=== PATIENT | female | born 1950 | race Caucasian/White ===

== ENCOUNTER → 2019-11-08 08:18 | Outpatient (BNVA) | payer MEDICARE, MEDICAID, SELFPAY | PROVIDERS: Family Provider Family Medicine; PCP Family Medicine; Visit Provider Nurse Practitioner | DX: F90.2 Attention-deficit hyperactivity disorder, combined type (principal); F43.12 Post-traumatic stress disorder, chronic | CPT/HCPCS: 99213 ==

== ENCOUNTER 2021-01-10 07:48 | Outpatient (CLI) | payer MEDICARE, SELFPAY ==
--- NOTE | 2021-01-10 08:04 | USCV_ITS ---
Yane Lacey Age: 70 Gender: F : 1950 Exam Date: 01/10/2021 08:16 Ordering Phys: Janell Khan MD Technologist: Reina Rea Exam Location: [facility] [place] Indication: HEART FAILURE BP: 150 / 85 HR: 73 Rhythm: Sinus Technical Quality: Poor because of body habitus MEASUREMENTS (Male / Female) Normal Values 2D ECHO LV Diastolic Diameter PLAX 3.3 cm 4.2 - 5.9 / 3.9 - 5.3 cm LV Systolic Diameter PLAX 2.2 cm IVS Diastolic Thickness 1.3 cm 0.6 - 1.0 / 0.6 - 0.9 cm IVS Systolic Thickness 2.0 cm LVPW Diastolic Thickness 1.5 cm 0.6 - 1.0 / 0.6 - 0.9 cm LVPW Systolic Thickness 1.8 cm RV Chamber Size 3.3 cm LVOT Diameter 2.0 cm LV Ejection Fraction 2D Teich 64.6 % LV Ejection Fraction MOD 2C 40.2 % LV Ejection Fraction 2C AL 43.0 % LA Diameter 2.9 cm LA Width 3.3 cm LA Height 3.7 cm RA Width 3.1 cm RA Height 4.2 cm Aorta at Sinotubular Diameter 1.8 cm M-MODE MV E Point Septal Separation 0.5 cm DOPPLER AV Peak Velocity 121.0 cm/s LVOT Peak Velocity 73.0 cm/s AV Area Cont Eq vti 1.9 cm squared AV Area Cont Eq pk 1.8 cm squared MV Area PHT 2.8 cm squared Mitral E to A Ratio 0.8 MV E' Velocity 38.5 cm/s Mitral E to MV E' Ratio 10.8 Mitral E to LV E' Lateral Ratio 11.3 Mitral E to LV E' Septal Ratio 10.3 TR Peak Velocity 143.0 cm/s TR Peak Gradient 8.2 mmHg TV Peak E Velocity 40.0 cm/s Right Atrial Pressure 3.0 mmHg Pulmonary Artery Systolic Pressu 11.2 mmHg PV Peak Velocity 77.0 cm/s RV Acceleration Time 0.1 s RV Ejection Time 0.3 s RV AcT/ET 0.4 FINDINGS Left Ventricle Normal left ventricular size, systolic function and mildly increased wall thickness, with no regional wall motion abnormalities. Left ventricular ejection fraction is estimated at 65 %. Grade I diastolic dysfunction (abnormal relaxation filling pattern), normal to mildly elevated filling pressures. Right Ventricle Normal right ventricular size and systolic function. Right ventricular systolic pressure 11.2 mmHg. Right Atrium Normal right atrial size. Left Atrium Normal left atrial size. Mitral Valve Mildly thickened mitral valve. No mitral valve stenosis. No mitral valve regurgitation. Aortic Valve Aortic valve not well visualized. No aortic valve stenosis. No aortic valve regurgitation. Tricuspid Valve Structurally normal tricuspid valve. Trace tricuspid valve regurgitation. Pulmonic Valve Pulmonic valve not well visualized. Pericardium No pericardial effusion. Aorta Normal size aortic root and proximal ascending aorta. CONCLUSIONS 1. Normal left ventricular size, systolic function and mildly increased wall thickness, with no regional wall motion abnormalities. Left ventricular ejection fraction is estimated at 65 %. Grade I diastolic dysfunction (abnormal relaxation filling pattern), normal to mildly elevated filling pressures. 2. Normal right ventricular size and systolic function. 3. Normal pulmonary artery pressure. 4. No significant valvular abnormality. 5. No prior similar studies to compare. Isabelle Plata MD (Electronically Signed) Final Date: 12 January 2021 12:12 S
== END 2021-01-10 07:49 | disposition home or self-care (01) ==
PROVIDERS: PCP Family Medicine; Visit Provider Family Medicine
DX: I50.9 Heart failure, unspecified (principal)
CPT/HCPCS: 93306

== ENCOUNTER 2021-02-20 06:00 | Outpatient (RCR) | payer MEDICARE, SELFPAY | END 2021-03-19 23:59 | disposition home or self-care (01) | LOC: SPT 06:00 | PROVIDERS: PCP Family Medicine; Referring Provider Family Medicine; Visit Provider Family Medicine | DX: I50.30 Unspecified diastolic (congestive) heart failure (principal) | CPT/HCPCS: 97110; 97163 ==

== ENCOUNTER 2021-02-20 14:35 | Outpatient (CLI) | payer MEDICARE, SELFPAY ==
--- NOTE | 2021-02-20 14:48 | XR_ITS ---
WS: [id number] PA and lateral chest, 02/20/2021 Clinical Data: rule out pneumonia Comparison: None. Findings: No nodules, masses or effusions are seen. The heart is normal. The aortic arch and descendi ng aorta show tortuosity. No pneumonia or pneumothorax is seen. There are right seventh costal surgic al clips and andi from a cholecystectomy. The patient may have had repair of a ventral hernia. XR/XR chest 2V* [id number] Impression: Atherosclerosis.
== END 2021-02-20 14:36 | disposition home or self-care (01) ==
LOC: RAD 14:45
PROVIDERS: PCP Family Medicine; Visit Provider Internal Medicine Pulmonary Disease
DX: J18.9 Pneumonia, unspecified organism (principal); I70.90 Unspecified atherosclerosis
CPT/HCPCS: 71046

== ENCOUNTER → 2021-03-05 12:50 | Outpatient (BNVA) | payer MEDICARE, SELFPAY | PROVIDERS: PCP Family Medicine; Visit Provider Internal Medicine Cardiovascular Disease | DX: I50.30 Unspecified diastolic (congestive) heart failure (principal); R06.00 Dyspnea, unspecified | CPT/HCPCS: 80053; 83735; 83880 ==

== ENCOUNTER 2021-03-06 10:57 | Outpatient (CLI) | payer MEDICARE, SELFPAY ==
--- NOTE | 2021-03-06 11:05 | CT_ITS ---
WS: [id number] LDCT LUNG CANCER SCREENING HISTORY: nicotine dependence TECHNIQUE: Axial imaging performed from the apices to 1 cm below the costophrenic angles. Coronal and sagittal reformats are submitted with axial MIP series. All CT scans at [facility] use at least one of these dose optimization techniques: automated exposure control; mA and/or kV adjustment per patient size (includes targeted exams where dose is matched to clinical indication); or iterativ e reconstruction. DLP: 84.19 mGy.cm DIvol: 2.76 mGy COMPARISON: 02/25/[address] Diagnostic quality: Satisfactory Lung Nodules: Micronodule measuring 2 mm the periphery RIGHT lower lobe, image 154 of series 3. Round ed long-term stability 5 mm nodule along the LEFT fissure, image 91 of series 3. Additional benign gr anuloma LEFT lower lobe. Lungs: Mild chronic emphysema. Heart: Normal size heart. Heavy calcification along the LEFT anterior descending coronary artery. No effusion. Other findings: Calcified LEFT hilar lymph nodes. Small hiatal hernia. Prior cholecystectomy. Mild th ickening of the LEFT adrenal gland is similar to 2018. CT/CT lung screening [id number] IMPRESSION: LUNG-RADS: 2-Benign Appearance or Behavior FOLLOW UP: 12 Month: Continue annual screening with LDCT OTHER FINDINGS (S MODIFIER): None.
== END 2021-03-06 10:58 | disposition home or self-care (01) ==
LOC: RAD 11:01
PROVIDERS: PCP Family Medicine; Visit Provider Internal Medicine Pulmonary Disease
DX: Z12.2 Encounter for screening for malignant neoplasm of respiratory organs (principal); F17.210 Nicotine dependence, cigarettes, uncomplicated; K44.9 Diaphragmatic hernia without obstruction or gangrene; Z90.49 Acquired absence of other specified parts of digestive tract
CPT/HCPCS: 71271

== ENCOUNTER → 2021-03-12 11:10 | Outpatient (BNVA) | payer MEDICARE, SELFPAY | PROVIDERS: PCP Family Medicine; Visit Provider Internal Medicine Cardiovascular Disease | DX: I10 Essential (primary) hypertension (principal); I50.30 Unspecified diastolic (congestive) heart failure; R06.00 Dyspnea, unspecified | CPT/HCPCS: 80048; 83735; 83880; 85025 ==

== ENCOUNTER 2021-04-18 14:33 | Emergency (ER) | payer MEDICARE, SELFPAY ==
[2021-04-18 14:58] VITALS: BP 148/78; PULSE 85; RESP 19; TEMP 36.8; O2SAT 97; BMI 44.9
--- NOTE | 2021-04-18 15:53 | XR_ITS ---
WS: [id number] Exam: XR chest 1V portable [id number] Date/Time of Exam: 04/18/2021 3:53 PM Reason For Exam: cough Comparison 02/20/2021. The lungs are clear and fully expanded. Cardiomediastinal structures are unremarkable. There are scat tered calcified granulomas. Regional bony elements are intact. No pleural effusions. XR/XR chest 1V portable [id number] IMPRESSION: 1. No acute cardiopulmonary finding.
--- NOTE | 2021-04-18 17:27 | W.ED.GENADLT ---
HPI - General Adult General: Chief complaint: General Medical Stated complaint: bad cough burning in abd sent by pcp Time Seen by Provider: 04/18/21 17:27 History of Present Illness: HPI narrative: 70-year-old female comes in today with concerns of a cough along with abdominal pain. Patient has a significant midline abdominal hernia secondary to prior abdominal surgery. Patient had part of her large bowel removed due to diverticulosis and developed a hernia post surgery. At that time they did placed mesh but since then the mesh has been torn she reports. States that she has chronic pain to the abdomen. Patient also reports constipation with some anal seepage. Patient does take Linzess for her chronic constipation. Patient appears well. Patient appears in mild to no pain. Vital signs are normal. Patient is on oxygen at 2 L per nasal cannula chronically. Patient seen her primary care and they had sent her to the ER for further evaluation of her abdomen needing a CT scan of the abdomen and pelvis, and also needing a COVID-19 test. Review of Systems General: Reports: 10 or more systems reviewed and unremarkable except in HPI and below Resp: Reports: non-productive cough GI: Reports: abdominal pain PFSH ED PFSH: Medical History (Updated 04/18/21 @ 18:57 by IDALIA Amaya) Attention-deficit hyperactivity disorder, combined type Diastolic CHF Enrolled in chronic care management Hernia of abdominal cavity HTN (hypertension) Insomnia Osteoarthritis Post-traumatic stress disorder, chronic Type 2 diabetes mellitus Surgical History (Updated 03/09/21 @ 08:12 by Isabelle Plata MD) H/O total hysterectomy Hx of appendectomy Hx of cholecystectomy Hx of tonsillectomy Family History Brother Cancer Lung Mother Diabetes CAD (coronary artery disease) Sister Diabetes CAD (coronary artery disease) Social History Quit status (tobacco): considering quitting Second hand smoke exposure: Yes Smoking risk assessment/counseling performed?: Yes Alcohol intake: never Desire information about alcohol rehabilitation?: No Counseling given: No Desire information about substance/drug rehabilitation?: No Counseling given: No Lives independently: Yes Household members: family Marital status: / Current occupational status: retired History of recent travel: No Current gender identity: Female Physical Exam Const: COMMON NORMALS: no acute distress and patient oriented x3 GENERAL APPEARANCE: cooperative HENMT: COMMON NORMALS: normocephalic and Normal external nose present HEAD & SCALP: normal to inspection and normocephalic NOSE: Normal external nose present MOUTH: Normal oral and palatal mucosa present THROAT: posterior oropharynx normal Eye: GENERAL EYE: appearance normal, both eyes and all related structures Neck/C-Spine: COMMON NORMALS: full ROM Lymph: LYMPHATIC: no lymphadenopathy noted Chest: COMMONS NORMALS: normal inspection of the chest Resp: COMMON NORMALS: normal respiratory effort EFFORT & INSPECTION: Yes able to speak in complete sentences Cardio: COMMON NORMALS: regular rate and regular rhythm RATE: regular rate RHYTHM: regular rhythm GI: COMMON NORMALS: Soft to palpation PALPATION: Yes Soft to palpation and Yes Tenderness to palpation present (GI) (general tenderness) : COMMON NORMALS: Yes no CVA tenderness BLADDER/KIDNEY EXAM: Yes no CVA tenderness Back/Pelvis: COMMON NORMALS: no CVA tenderness and thoracic and lumbar spine normal to inspection Extremity: COMMON NORMALS: normal to inspection Neuro: COMMON NORMALS: patient oriented x3 and moves all extremities Psych: COMMON NORMALS: mental status grossly normal and cooperative Skin: COMMON NORMALS: no rashes or lesions noted GENERAL SKIN EXAM: no rashes or lesions noted Course Vital Signs: Vital signs: Vital Signs Temperature 98.1 F 04/18/21 18:21 Pulse Rate 75 04/18/21 18:21 Respiratory Rate 18 04/18/21 18:21 Blood Pressure 140/98 04/18/21 18:21 Pulse Oximetry 94 04/18/21 18:21 MDM - General Adult MDM Narrative: Medical decision making narrative: Patient was referred from her primary care provider for evaluation of abdominal pain and concern for possible COVID-19. On exam respirations were even lungs are clear to auscultation. Patient appeared well. Abdomen was rotund with a midline postsurgical abdominal hernia. Bowel sounds were present. Skin was warm and dry. Vital signs were normal. Differential diagnosis includes but not limited to bowel obstruction, COVID-19, constipation due to the chronic opiate use. Laboratory values were unremarkable. CT of the abdomen pelvis noted constipation but no other acute abnormality. COVID-19 antigen test was negative. Reviewed exam with patient recommendations for follow-up or return to the ER. Patient reported understanding and agreed to plan. No changes in treatment plan was noted at this time. Lab Data: Labs: Lab Results 04/18/21 04/18/21 04/18/21 18:08 18:20 18:20 WBC 6.0 10^3/uL 10^3/ uL (4.0-10.0) RBC 4.88 10^6/uL 10^6 /uL (4.1-5.3) Hgb 14.5 g/dL g/dL (11.5-15.3) Hct 45.3 % % (37.0-47.0) MCV 92.8 fl fl (81-99) MCH 29.7 pg pg (28.0-34.0) MCHC 32.0 g/dL g/dL (30.0-36.0) RDW 13.0 % % (12.1-15.1) Plt Count 193 10^3/cmm 10^3 /cmm (130-400) MPV 10.3 fL fL (7.4-10.4) Neut % (Auto) 59.2 % % Lymph % (Auto) 28.9 % % [place] % (Auto) 8.5 % % Eos % (Auto) 2.7 % % Baso % (Auto) 0.5 % % Neut # (Auto) 3.58 10^3/uL 10^3 /uL (1.8-7.7) Lymph # (Auto) 1.7 10^3/uL 10^3/ uL (0.8-4.8) [place] # (Auto) 0.5 10^3/uL 10^3/ uL (0.2-0.9) Eos # (Auto) 0.2 10^3/uL 10^3/ uL (0.0-0.8) Baso # (Auto) 0.0 10^3/uL 10^3/ uL (0.0-0.1) Nucleated RBC % (a uto) 0 % % Nucleated RBCs # 0.0 /100WBC /100W BC Sodium 140 mmol/L mmol/L (136-145) Potassium 4.0 mmol/L mmol/L (3.5-5.1) Chloride 105 mmol/L mmol/L (98-107) Carbon Dioxide 28 mmol/L mmol/L (22-29) Anion Gap 11.0 (5-19) BUN 20 mg/dL mg/dL (8-23) Creatinine 0.8 mg/dL mg/dL (0.5-0.9) GFR Calculation Not Reportable Glucose 100 mg/dL mg/dL (65-115) Calculated Osmolal ity 293 mOsm/kg mOsm/ kg (285-295) Lactic Acid Calcium 8.6 mg/dL mg/dL (8.5-10.5) Total Bilirubin 0.2 mg/dL mg/dL (0.15-1.2) AST 13 U/L U/L (0-32) ALT 11 U/L U/L (0-33) Alkaline Phosphata se 96 IU/L IU/L (35-105) Total Protein 6.3 g/dL L g/dL (6.6-8.7) Albumin 3.6 g/dL g/dL (3.5-5.2) Globulin 2.7 g/dL g/dL (1.3-4.6) SARS-CoV-2 Ag (Rap id) Negative (Negative) 04/18/21 18:20 WBC RBC Hgb Hct MCV MCH MCHC RDW Plt Count MPV Neut % (Auto) Lymph % (Auto) [place] % (Auto) Eos % (Auto) Baso % (Auto) Neut # (Auto) Lymph # (Auto) [place] # (Auto) Eos # (Auto) Baso # (Auto) Nucleated RBC % (a uto) Nucleated RBCs # Sodium Potassium Chloride Carbon Dioxide Anion Gap BUN Creatinine GFR Calculation Glucose Calculated Osmolal ity Lactic Acid 0.8 mmol/L mmol/L (0.5-2.2) Calcium Total Bilirubin AST ALT Alkaline Phosphata se Total Protein Albumin Globulin SARS-CoV-2 Ag (Rap id) Discharge Plan Discharge Patient Disposition: Home Clinical Impression: Cough Abdominal pain Qualifiers: Abdominal location: generalized Qualified Code(s): R10.84 - Generalized abdominal pain Constipation Qualifiers: Constipation type: drug induced constipation Qualified Code(s): K59.03 - Drug induced constipation Condition: Stable Prescriptions: No Action omeprazole magnesium [Acid Overhead Crane Technician (omeprazole)] 20 mg capsule,delayed release(DR/EC) 20 mg PO DAILY RF: 0 methylphenidate HCl [Ritalin] 20 mg tablet 20 mg PO BID 30 Days Qty: 60 RF: 0 Linzess 290 mcg capsule 290 mcg PO DAILY RF: 0 atorvastatin 20 mg tablet 20 mg PO DAILY RF: 0 nicotine 14 mg/24 hr patch 24 hour 1 patch transdermal DAILY RF: 0 prazosin 1 mg capsule 1 mg PO DAILY RF: 0 ondansetron HCl 8 mg tablet 8 mg PO Q8H PRN (Reason: nausea and vomiting) RF: 0 terconazole 0.8 % cream vaginal DAILY PRNRF: 0 flunisolide 25 mcg (0.025 %) spray,non-aerosol 2 spray intranasal BID RF: 0 cyanocobalamin (vitamin B-12) 1,000 mcg/mL solution 1,000 mcg IM .weekly RF: 0 nystatin 100,000 unit/gram cream 1 applic topical BID RF: 0 lidocaine 5 % adhesive patch,medicated 1 patch topical DAILY RF: 0 mupirocin 2 % ointment 1 applic topical TID RF: 0 silver sulfadiazine [SSD] 1 % cream 1 applic topical BID PRNRF: 0 senna 8.6 mg capsule 17.2 mg PO DAILY RF: 0 Trelegy Ellipta 100-62.5-25 mcg blister with device 1 inh inhalation DAILY Qty: 60 RF: 3 ipratropium-albuterol 0.5 mg-3 mg(2.5 mg base)/3 mL solution for nebulization 3 ml inhalation Q4H PRN (Reason: wheezing) Qty: 90 RF: 3 lisinopril 20 mg tablet 20 mg PO DAILY Qty: 30 RF: 3 spironolactone 50 mg tablet 50 mg PO DAILY Qty: 30 RF: 3 lactulose [Constulose] 10 gram/15 mL solution 10 g PO BID RF: 0 gabapentin 600 mg tablet 600 mg PO TID RF: 0 hydrocodone-acetaminophen 10-325 mg tablet 1 - 2 tab PO .q4-6h PRNRF: 0 hydroxyzine HCl 50 mg tablet 50 - 100 mg PO QID PRNRF: 0 ibuprofen 800 mg tablet 800 mg PO TID RF: 0 levocetirizine 5 mg tablet 5 mg PO DAILY RF: 0 metformin 500 mg tablet 500 mg PO BID RF: 0 montelukast 10 mg tablet 10 mg PO DAILY RF: 0 Narcan 4 mg/actuation spray,non-aerosol 4 mg intranasal Q3M PRNRF: 0 nitroglycerin 0.1 mg/hr patch 24 hour 1 patch transdermal DAILY PRN (Reason: chest pain) RF: 0 potassium chloride 10 mEq tablet,ER particles/crystals 10 meq PO DAILY RF: 0 topiramate 200 mg tablet 200 mg PO BID RF: 0 Toviaz 8 mg tablet extended release 24 hr 8 mg PO DAILY RF: 0 albuterol sulfate [Ventolin HFA] 90 mcg/actuation HFA aerosol inhaler 2 puff inhalation Q6H PRNRF: 0 Linzess 145 mcg capsule 145 mcg PO .qod RF: 0 nortriptyline 50 mg capsule 50 mg PO DAILY PRNRF: 0 furosemide 40 mg tablet 60 mg PO DAILY RF: 0 Discharge Orders: Discharge ED (Routine); Ordered 04/18/21 Ordered By: Rafael Arambula Referrals: Janell Khan MD [Primary Care Provider] - Discharge Diet: Usual diet Discharge Activity: Increase activity as tolerated Patient Instructions: Abdominal Pain (ED), Opioid Safety Activity Restrictions/Additional Instructions: Continue with routine care. Drink plenty of fluids. Take your Linzess routinely as directed to help with your constipation. Follow-up with primary care for further instruction. Return to the ER for high fever, worsening pain, or new concerns. Coding Level of Care Code ED Fingerprint Technician for Chg Fwd Exam Comprehensive
--- NOTE | 2021-04-18 17:35 | CTR_ITS ---
PROCEDURE INFORMATION: Exam: CT Abdomen And Pelvis With Contrast Exam date and time: 04/18/2021 5:35 PM Age: 70 years old Clinical indication: Abdominal pain; Generalized; Prior surgery; Surgery type: Gb, hernia, appy, hyst, spinal; Additional info: Abd pain, rectal bleeding, abd hernia TECHNIQUE: Imaging protocol: Computed tomography of the abdomen and pelvis with contrast. Total images: 272 Radiation optimization: All CT scans at this facility use at least one of these dose optimization techniques: automated exposure control; mA and/or kV adjustment per patient size (includes targeted exams where dose is matched to clinical indication); or iterative reconstruction. Contrast material: OMNI 300; Contrast volume: 95 ml; Contrast route: INTRAVENOUS (IV); COMPARISON: CT Chest/Abdomen/Pelvis w IV* 02/25/2018 8:30 PM RADIATION DOSE METRICS: Total DLP (mGy-cm): 1769.03 FINDINGS: Lungs: Limited assessment of the lung bases fails to reveal evidence for active cardiopulmonary process. Liver: No visible hepatic mass or cystic structure. Gallbladder and bile ducts: Status post cholecystectomy. Pancreas: Pancreas is unremarkable. No visible pancreatic ductal ectasia. Spleen: Spleen unremarkable. Adrenal glands: Bilateral adrenal nodules the right measuring 18 mm x 10 mm in the left 16 mm x 14 mm. The left demonstrates enhancement. Both were present on the study of 02/25/2018 and appear stable. Kidneys and ureters: No hydronephrosis or perinephric fluid. Nonobstructing calyceal nephrolithiasis superior pole left kidney. No visible nephrolithiasis right kidney. Simple renal cortical cysts right kidney the largest superior pole measuring only 18 mm. No follow-up recommended. Stomach and bowel: Nonobstructive bowel pattern. No no visible adynamic or reactive ileus. Heavy fecal residue consistent with constipation. Appendix: Status post appendectomy. Intraperitoneal space: No visible pneumoperitoneum or intraperitoneal ascites. Vasculature: Coronary artery disease. Portal vein patent. The abdominal aorta is nonaneurysmal. Minimal arterial sclerotic disease. Lymph nodes: Unremarkable. No enlarged lymph nodes. Urinary bladder: Urinary bladder unremarkable. Reproductive: Status post hysterectomy. Bones/joints: No visible active or acute osseous pathology. Sacral electronic stimulating device. Soft tissues: Evidence of a previous ventral hernia repair. Stable appearing supraumbilical ventral hernia containing nonobstructed incarcerated transverse colon bowel loops dimensions 10.7 cm x 4 cm x 9.8 cm. Wide opening at 7.8 cm. Other findings: Marked obesity. CT/CT abdomen pelvis w con* [id number] IMPRESSION: 1. Currently no visible evidence for acute abdominal or pelvic pathologic process. 2. Constipation. 3. Bilateral adrenal nodule stable since last examination of 2018 as detailed in text above. No follow-up is necessary. (Reference: Angela). 4. Other nonurgent, nonemergent, chronic, postoperative, and age related findings as detailed in text above. COMMENTS: 1. Consistent with the [place] [employer]'s Incidental Findings Committee white paper (J Am Amauri Radiol 2017): Any incidental adrenal lesion less than or equal to 1 cm is likely benign. No follow-up imaging is recommended for these lesions per consensus recommendations based on imaging criteria. Further lab evaluation could be pursued if warranted based on clinical findings. 2. Consistent with the [place] [employer]'s Incidental Findings Committee white paper (J Am Amauri Radiol 2018): Any incidental renal lesion less than 1 cm or classified as too small to characterize, or any incidental cystic renal lesion characterized as simple-appearing, is likely benign. No follow-up imaging is recommended for these lesions per consensus recommendations based on imaging criteria. REFERENCES: Angela ALEXANDER, et al. Management of Incidental Adrenal Masses: A White Paper of the ACR Incidental Findings Committee. J Am Amauri Radiol. 2017;14(8):4841-5794. Radiation Dose CTDIVOL = (mGy): DLP = 1769.03 (mGy-cm)
[2021-04-18] MEDS: iohexol 300 mg/mL 100 mL Btl IV (17:55)
[2021-04-18 18:21] VITALS: BP 140/98; PULSE 75; RESP 18; TEMP 36.7; O2SAT 94
[2021-04-18 18:33] LABS: Basophils % 0.5 %; Eosinophils # 0.2 10^3/uL (0.0-0.8); Eosinophils % 2.7 %; Hematocrit 45.3 % (37.0-47.0); Hemoglobin 14.5 g/dL (11.5-15.3); Lymphocytes # 1.7 10^3/uL (0.8-4.8); Lymphocytes % 28.9 %; Mean Corpuscular Hemoglobin 29.7 pg (28.0-34.0); Mean Corpuscular Volume 92.8 fl (81-99); Mean Platelet Volume 10.3 fL (7.4-10.4); Monocytes # 0.5 10^3/uL (0.2-0.9); Monocytes % 8.5 %; Neutrophils # 3.58 10^3/uL (1.8-7.7); Neutrophils % 59.2 %; Nucleated Red Blood Cells % 0 %; Platelet Count 193 10^3/cmm (130-400); Red Blood Count 4.88 10^6/uL (4.1-5.3)
[2021-04-18 18:44] LABS: SARS Covid-2 Antigen Negative (Negative)
[2021-04-18 18:50] LABS: Alanine Aminotransferase 11 U/L (0-33); Albumin Level 3.6 g/dL (3.5-5.2); Alkaline Phosphatase 96 IU/L (35-105); Aspartate Amino Transferase 13 U/L (0-32); Blood Urea Nitrogen 20 mg/dL (8-23); Calcium 8.6 mg/dL (8.5-10.5); Carbon Dioxide 28 mmol/L (22-29); Chloride 105 mmol/L (98-107); Globulin 2.7 g/dL (1.3-4.6); Glucose 100 mg/dL (65-115); Osmolality Calculated 293 mOsm/kg (285-295); Sodium 140 mmol/L (136-145); Total Bilirubin 0.2 mg/dL (0.15-1.2); Total Protein 6.3 g/dL (6.6-8.7)
[2021-04-18 18:51] LABS: Lactic Sepsis W/Reflex 0.8 mmol/L (0.5-2.2)
[2021-04-18 19:07] VITALS: BP 121/72; PULSE 88; RESP 18; TEMP 36.6; O2SAT 97
== END 2021-04-18 19:16 | disposition home or self-care (01) ==
PROVIDERS: Physician Assistant; Emergency Provider Nurse Practitioner Family; PCP Family Medicine
DX: R10.84 Generalized abdominal pain (principal); K59.03 Drug induced constipation; R05 Cough; Z79.84 Long term (current) use of oral hypoglycemic drugs; I11.0 Hypertensive heart disease with heart failure; I50.30 Unspecified diastolic (congestive) heart failure; E11.9 Type 2 diabetes mellitus without complications; Z77.22 Contact with and (suspected) exposure to environmental tobacco smoke (acute) (chronic); Z20.822 Contact with and (suspected) exposure to COVID-19
CPT/HCPCS: 71045; 74177; 80053; 83605; 85025; 87426; 99283; Q9967

== ENCOUNTER 2021-04-22 06:00 | Outpatient (RCR) | payer MEDICARE, SELFPAY | END 2021-05-19 23:59 | disposition home or self-care (01) | LOC: SOT 06:00 | PROVIDERS: PCP Family Medicine; Referring Provider Family Medicine; Visit Provider Family Medicine | DX: I50.30 Unspecified diastolic (congestive) heart failure (principal) | CPT/HCPCS: 97167; 97530 ==

== ENCOUNTER 2021-04-24 07:23 | Outpatient (CLI) | payer MEDICARE, SELFPAY ==
[2021-04-24 07:40] VITALS: BMI 44.5
--- NOTE | 2021-04-24 08:10 | ECG_ITS ---
[facility] Test Date: 2021-04-24 Pat Name: Yane Lacey Department: Room: Gender: Female Personal Care Attendant: Skye Cleveland : 1950 Requested By: Isabelle Plata Order Number: [id number] Cisco MD: Isabelle Plata M.D. Interpretive Statements NAME OF STUDY: DOBUTAMINE SESTAMIBI STRESS TEST INDICATION: Chest Pain PROCEDURE: At the baseline, the blood pressure was 139/77 mmHg with a heart rate of 70 bpm. The electrocardiogram showed normal sinus rhythm, normal axis. Possible old anterior infarct. The dobutamine was infused over a period of 8 minutes 10 seconds. The maximum heart rate obtained was 136 bpm (91% of the maximum predicted heart rate). The blood pressure at that time was 127/72 mmHg. The patient did not have any chest pain or any significant electrocardiogram changes with the dobutamine infusion. The physical examination remained unchanged. Isolated PVCs noted during dobutamine infusion. During the recovery phase, the patient did not have any specific symptoms. The blood pressure at the end of the recovery phase was 117/60 mmHg with a heart rate of 97 beats per minute. CONCLUSION: 1. Normal EKG response to dobutamine infusion. 2. Normal blood pressure and heart rate response to dobutamine infusion. 3. Functional status could not be assessed due to pharmacological protocol. 4. Sestamibi/Sestamibi perfusion scan pending; see separate report. Electronically Signed On 04-26-2021 14:15:48 CDT by Isabelle Plata M.D. [email or web address]
--- NOTE | 2021-04-24 08:13 | NMCV_ITS ---
NM kal perf SPECT r/s* [id number] Yane Lacey Age: 70 Gender: F : 1950 Exam Date: 04/24/2021 08:42 Ordering Phys: Isabelle Plata MD ([email or web address]) Technologist: BEN Burrows Exam [facility]: [facility] Indications: SHORTNESS OF BREATH STRESS TEST Please see separate stress test report in [facility] for full findings IMAGE PROTOCOL Rest/Stress 1 Dobutamine Day Radiopharmaceutical Dose (mCi) Administration Site Administered by Rest: Tc-99m 10.8 IV BEN Mosley Sestamibi Stress:Tc-99m 33.0 IV BEN Mosley Sestamibi Rest: 24-Apr-2021 60 Discovery 630 Stress: 24-Apr-2021 30 Discovery 630 Radiopharmaceutical was injected at 87 % maximum heart rate. Supine position only as patient was unable to lay prone. SPECT RESULTS Technical Quality: Excellent Raw Data Analysis: Normal Image Corrections: No attenuation or motion correction applied Summed Stress Score: 1 Summed Rest Score: 2 Summed Difference Score: 0 PERFUSION FINDINGS Small size perfusion abnormality of mild severity of apical inferior and apical wall on rest images with somewhat improved tracer uptake on stress images. FUNCTIONAL RESULTS (calculated via Gated SPECT) Stress Image LV EF (%): 74 Stress EDV (mL):53 TID: 0.94 Stress ESV (mL):14 FUNCTIONAL FINDINGS: The left ventricle is normal in size. Transient Ischemia Dilatation of 0.94. There is normal left ventricular systolic function. The left ventricular ejection fraction is normal with a value of 74%. There is normal left ventricular wall thickening with no regional wall motion abnormality. Normal end-diastolic and end-systolic volumes. IMPRESSIONS 1. Small sized perfusion abnormality of mild severity of apical inferior and apical erazo. This may represent attenuation artifact or old myocardial infarction. 2. Overall left ventricular systolic function is normal without regional wall motion abnormalities. 3. The left ventricular ejection fraction is normal with a value of 74%. 4. No coronary ischemia based on the study. 5. No prior similar studies to compare. Isabelle Plata MD (Electronically Signed) Final Date: 26 April 2021 14:42 S
[2021-04-24] MEDS: DOBUTtamine 200 MG in sodium chloride 0.9% 34 ML 15 MG IV (09:33)
[2021-04-24 09:45] VITALS: BP 128/50; PULSE 99
== END 2021-04-24 07:24 | disposition home or self-care (01) ==
LOC: CDL 07:25
PROVIDERS: PCP Family Medicine; Visit Provider Internal Medicine Cardiovascular Disease
DX: R06.02 Shortness of breath (principal)
CPT/HCPCS: 78452; 93017; A9500; J1250; J7050

== ENCOUNTER 2021-05-10 14:48 | Outpatient (CLI) | payer MEDICARE, SELFPAY ==
[2021-05-10 15:41] LABS: Estmated Average Glucose 128; Hemoglobin A1C 6.1 % (4.0-6.0)
== END 2021-05-10 14:49 | disposition home or self-care (01) ==
PROVIDERS: PCP Family Medicine; Visit Provider Family Medicine
DX: E11.9 Type 2 diabetes mellitus without complications (principal)
CPT/HCPCS: 36415; 83036

== ENCOUNTER 2021-10-08 18:49 | Emergency (ER) | payer MEDICARE, MEDICAID, SELFPAY ==
[2021-10-08 18:55] VITALS: BP 123/68; PULSE 82; RESP 18; TEMP 36.8; O2SAT 99; BMI 45.1
--- NOTE | 2021-10-08 19:06 | PC.NURSE ---
Dr. Ott reviewed EKG that was taken in triage at 190
--- NOTE | 2021-10-08 19:18 | ED_ITS ---
HPI - SOB/Dyspnea General: Chief Complaint: Shortness of Breath/Dyspnea Stated Complaint: sob, cough Time Seen by Provider: 10/08/21 19:10 History of Present Illness: HPI Narrative: Ms. Lacey is a 71-year-old lady with significant past medical history of COPD, hypertension, hyperlipidemia, diabetes, diastolic heart failure with intermittent home oxygen use who presents to the emergency department due to shortness of breath and cough. She baseline has cough however over the past 4 days she has had gradually worsening. Cough is mildly productive and she d escribes increased shortness of breath. She has had a rattly feeling in her left chest and mild discomfort. She denies signs of systemic illness. Intensity of symptoms is now moderate. Course has been worsening. She has had to use her home oxygen more frequently. No other specific changes in health, exacerbating, or alleviating factors identified. Pertinent past history: COPD, congestive heart failure and diabetes Onset (ago): day(s) Severity: moderate Review of Systems General: Reports: 10 or more systems reviewed and unremarkable except in HPI and below PFSH ED PFSH: Medical History Attention-deficit hyperactivity disorder, combined type Diastolic CHF Enrolled in chronic care management Hernia of abdominal cavity HTN (hypertension) Insomnia Osteoarthritis Post-traumatic stress disorder, chronic Type 2 diabetes mellitus Surgical History H/O total hysterectomy Hx of appendectomy Hx of cholecystectomy Hx of tonsillectomy Family History Brother Cancer Lung Mother Diabetes CAD (coronary artery disease) Sister Diabetes CAD (coronary artery disease) Social History Smoking and tobacco status: current every day smoker cigarettes Packs smoked per day: 0.5 Years cigarettes smoked: 55 [ Other cigarette details: Hx of 3 PPD x 55 Years] Quit status (tobacco): considering quitting Second hand smoke exposure: Yes Smoking risk assessment/counseling performed?: Yes Alcohol intake: never Desire information about alcohol rehabilitation?: No Counseling given: No Desire information about substance/drug rehabilitation?: No Counseling given: No Lives independently: Yes Household members: family Marital status: / Current occupational status: retired History of recent travel: No Current gender identity: Female Physical Exam Const: COMMON NORMALS: alert GENERAL APPEARANCE: cooperative and well developed HENMT: COMMON NORMALS: normocephalic and atraumatic HEAD & SCALP: normocephalic and atraumatic Eye: COMMON NORMALS: conjunctivae normal CONJUNCTIVA: Yes conjunctivae normal SCLERA: sclerae normal Neck/C-Spine: COMMON NORMALS: supple GENERAL: Yes trachea midline Resp: EFFORT & INSPECTION: Yes able to speak in complete sentences AUSCULTATION: rhonchi lower bilaterally and diminished lung sounds Cardio: COMMON NORMALS: regular rate and regular rhythm RATE: regular rate RHYTHM: regular rhythm GI: COMMON NORMALS: Soft to palpation PALPATION: Yes Soft to palpation, No Tenderness to palpation present (GI) and Yes Hernia present ventral (chronic, soft, no skin changes, normal BMs, no increased pain per pt) : EXTERNAL FEMALE EXAM: Yes Hernia present Extremity: GENERAL: Yes normal exam except as noted and No edema Neuro: COMMON NORMALS: moves all extremities SENSORIUM/ORIENTATION: Yes alert and No Orientation impaired Psych: COMMON NORMALS: mental status grossly normal and Normal thought process present THOUGHT PROCESS: Normal thought process present Course ED course: - Patient was seen and evaluated by me at bedside - Patient placed on cardiac monitors, IV access obtained - Initial evaluation notable for exam as above - Labs and xrays personally interpreted by me -COPD treatment ordered - Labs notable for no leukocytosis, mild hemoconcentration noted. Delta troponin negative. - Imaging notable for no lobar consolidation or pneumothorax - Upon serial reexamination after treatment the patient was improved. Baseline oxygen requirement. - Based on patient history, evaluation, and testing as interpreted the most likely cause of the patient's condition is COPD exacerbation - The results of ED evaluation were discussed with the patient including prescriptions and/or symptomatic cares (if applicable) including appropriate and responsible use, followup plan, and return precautions. The patient verbalized understanding and felt safe for discharge. - Patient discharged in satisfactory condition. Note: Click bubbles or prepopulated jarrett in note writing are used for assistance with data collection and billing and are inherently more limited than narrative and other text portions of this note. Please use narrative for additional clinical history and defer to narrative/free test for any case of contradictory information. If information appears in only free text or click bubble it should be considered present or absent as reported. Please contact note filing writer for clarifications of clinical information or contradictory information. MDM is a brief summary, contradictory or erroneous seeming information should be clarified and full note should be reviewed. Vital Signs: Vital signs: Vital Signs Temperature 98.3 F 10/08/21 18:55 Pulse Rate 76 10/08/21 20:32 Respiratory Rate 16 10/08/21 20:32 Blood Pressure 104/74 10/08/21 19:31 Pulse Oximetry 98 10/08/21 20:32 MDM - SOB/Dyspnea Medical Decision Making 71-year-old lady with history of COPD presenting due to cough, shortness breath, and chest discomfort. Improved with symptom treatment. Satisfactory for outpatient treatment of COPD exacerbation. Medical Records I reviewed the patient's medical records. Lab Data I reviewed the patient's lab results. : 10/08/21 19:32 10/08/21 19:32 Labs/Radiology: Radiology Impressions Chest X-Ray 10/08/21 19:27 IMPRESSION: No acute findings. Laboratory Results WBC 4.6 10^3/uL (4.0-10.0) 10/08/21 19:32 RBC 5.47 10^6/uL (4.1-5.3) H 10/08/21 19:32 Hgb 16.5 g/dL (11.5-15.3) H 10/08/21 19:32 Hct 51.0 % (37.0-47.0) H 10/08/21 19:32 MCV 93.2 fl (81-99) 10/08/21 19:32 MCH 30.2 pg (28.0-34.0) 10/08/21 19:32 MCHC 32.4 g/dL (30.0-36.0) 10/08/21 19:32 RDW 12.4 % (12.1-15.1) 10/08/21 19:32 Plt Count 179 10^3/cmm (130-400) 10/08/21 19:32 MPV 10.6 fL (7.4-10.4) H 10/08/21 19:32 Neut % (Auto) 55.7 % 10/08/21 19:32 Lymph % (Auto) 25.4 % 10/08/21 19:32 [place] % (Auto) 13.7 % 10/08/21 19:32 Eos % (Auto) 3.9 % 10/08/21 19:32 Baso % (Auto) 0.9 % 10/08/21 19:32 Neut # (Auto) 2.56 10^3/uL (1.8-7.7) 10/08/21 19:32 Lymph # (Auto) 1.2 10^3/uL (0.8-4.8) 10/08/21 19: [place] # (Auto) 0.6 10^3/uL (0.2-0.9) 10/08/21 19: Eos # (Auto) 0.2 10^3/uL (0.0-0.8) 10/08/21 19: Baso # (Auto) 0.0 10^3/uL (0.0-0.1) 10/08/21 19:32 Nucleated RBC % (auto) 0 % 10/08/21 19: Nucleated RBCs # 0.0 /100WBC 10/08/21 19:32 Sodium 144 mmol/L (136-145) 10/08/21 19:32 Potassium 3.8 mmol/L (3.5-5.1) 10/08/21 19:32 Chloride 107 mmol/L (98-107) 10/08/21 19:32 Carbon Dioxide 27 mmol/L (22-29) 10/08/21 19:32 Anion Gap 13.8 (5-19) 10/08/21 19:32 BUN 14 mg/dL (8-23) 10/08/21 19:32 Creatinine 0.8 mg/dL (0.5-0.9) 10/08/21 19:32 GFR Calculation Not Reportable 10/08/21 19:32 Glucose 162 mg/dL (65-115) H 10/08/21 19:32 Calculated Osmolality 302 mOsm/kg (285-295) H 10/08/21 19:32 Calcium 9.3 mg/dL (8.5-10.5) 10/08/21 19:32 Total Bilirubin 0.2 mg/dL (0.15-1.2) 10/08/21 19:32 AST 15 U/L (0-32) 10/08/21 19:32 ALT 13 U/L (0-33) 10/08/21 19:32 Alkaline Phosphatase 121 IU/L (35-105) H 10/08/21 19:32 Troponin T Baseline 19 ng/L (0-10) H 10/08/21 19:32 Troponin T 120 Minute 18.10 ng/L (0-10) H 10/08/21 21:13 Delta Troponin T -0.90 ABS# (0-10) L 10/08/21 21:13 Total Protein 7.1 g/dL (6.6-8.7) 10/08/21 19:32 Albumin 4.2 g/dL (3.5-5.2) 10/08/21 19:32 Globulin 2.9 g/dL (1.3-4.6) 10/08/21 19:32 Discharge Plan Discharge Patient Disposition: Home Clinical Impression: Acute exacerbation of chronic obstructive airways disease Condition: Stable Prescriptions: New doxycycline hyclate 100 mg tablet 100 mg PO BID 10 Days Qty: 20 0RF benzonatate 100 mg capsule 100 mg PO BID PRN (Reason: cough) Qty: 10 0RF No Action omeprazole magnesium [Acid Roll Over Press Operator (omeprazole)] 20 mg capsule,delayed release(DR/EC) 20 mg PO DAILY 0RF methylphenidate HCl [Ritalin] 20 mg tablet 20 mg PO BID 30 Days Qty: 60 0RF Linzess 290 mcg capsule 290 mcg PO DAILY 0RF atorvastatin 20 mg tablet 20 mg PO DAILY 0RF nicotine 14 mg/24 hr patch 24 hour 1 patch transdermal DAILY 0RF prazosin 1 mg capsule 1 mg PO DAILY 0RF ondansetron HCl 8 mg tablet 8 mg PO Q8H PRN (Reason: nausea and vomiting) 0RF terconazole 0.8 % cream 0.8 applic vaginal DAILY PRN (Reason: Itching) 0RF flunisolide 25 mcg (0.025 %) spray,non-aerosol 2 spray intranasal BID 0RF cyanocobalamin (vitamin B-12) 1,000 mcg/mL solution 1,000 mcg IM .weekly 0RF nystatin 100,000 unit/gram cream 1 applic topical BID 0RF lidocaine 5 % adhesive patch,medicated 1 patch topical DAILY 0RF Rx Instructions: leave on most painful area for up to 12 hrs mupirocin 2 % ointment 1 applic topical TID 0RF silver sulfadiazine [SSD] 1 % cream 1 applic topical BID PRN (Reason: Itching) 0RF Rx Instructions: apply a 1.5 mm thickness senna 8.6 mg capsule 17.2 mg PO DAILY 0RF ipratropium-albuterol 0.5 mg-3 mg(2.5 mg base)/3 mL solution for nebulization 3 ml inhalation Q4H PRN (Reason: wheezing) Qty: 90 3RF guaifenesin [Mucinex Fast-Max Chest-Congest] 100 mg/5 mL liquid 200 mg PO Q6H PRN (Reason: cough) Qty: 1000 3RF lisinopril 20 mg tablet 20 mg PO DAILY Qty: 30 3RF lactulose [Constulose] 10 gram/15 mL solution 10 g PO BID 0RF gabapentin 600 mg tablet 600 mg PO TID 0RF hydrocodone-acetaminophen 10-325 mg tablet 1 - 2 tab PO .q4-6h PRN (Reason: Pain) 0RF hydroxyzine HCl 50 mg tablet 50 - 100 mg PO QID PRN (Reason: Nausea) 0RF ibuprofen 800 mg tablet 800 mg PO TID 0RF levocetirizine 5 mg tablet 5 mg PO DAILY 0RF metformin 500 mg tablet 500 mg PO BID 0RF montelukast 10 mg tablet 10 mg PO DAILY 0RF Narcan 4 mg/actuation spray,non-aerosol 4 mg intranasal Q3M PRN (Reason: Opioid Overdose) 0RF Rx Instructions: spray 1 dose into ONE nostril; alternate nostrils w each dose until help arrives nitroglycerin 0.1 mg/hr patch 24 hour 1 patch transdermal DAILY PRN (Reason: chest pain) 0RF Rx Instructions: allow nitrate-free interval of approx. 10-12 hrs per 24-hour period potassium chloride 10 mEq tablet,ER particles/crystals 10 meq PO DAILY 0RF topiramate 200 mg tablet 200 mg PO BID 0RF Toviaz 8 mg tablet extended release 24 hr 8 mg PO DAILY 0RF albuterol sulfate [Ventolin HFA] 90 mcg/actuation HFA aerosol inhaler 2 puff inhalation Q6H PRN (Reason: Shortness Of Breath) 0RF furosemide 40 mg tablet 60 mg PO DAILY 0RF Trelegy Ellipta 100-62.5-25 mcg blister with device 1 inh inhalation DAILY Qty: 180 3RF lisinopril 10 mg tablet 10 mg PO DAILY 0RF spironolactone 50 mg tablet 50 mg PO DAILY 0RF Discharge Orders: Discharge ED (Routine); Ordered 10/08/21 Ordered By: Severiano Ott Referrals: Janell Khan MD [Primary Care Provider] - Discharge Diet: Usual diet Discharge Activity: Resume usual activity Patient Instructions: COPD (Chronic Obstructive Pulmonary Disease) (ED) Activity Restrictions/Additional Instructions: Thank you for visiting the emergency department. You were seen and evaluated for cough and shortness of breath. The most likely cause of your symptoms is exacerbation of your underlying COPD. Please continue your home inhalers. You will be given a prescription for antibiotics and steroids as well as cough. Please follow-up with your primary care provider. Please return to the emergency department for worsening symptoms or anything else that you are concerned about and feel needs emergency department evaluation. Coding Level of Care Code ED Pressure Control Supervisor for Guero Bruno
--- NOTE | 2021-10-08 19:27 | ECG_ITS ---
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 Measurements Intervals [place] Rate: 86 P: 61 [place]: 160 QRS: 34 QRSD: 70 T: 72 QT: 357 QTc: 427 Interpretive Statements SINUS RHYTHM LOW QRS VOLTAGE IN PRECORDIAL LEADS [QRS DEFLECTION < 1.0 mV IN CHEST LEADS] Compared to ECG 09/10/2017 15:40:19 No significant changes Electronically Signed On 10-09-2021 17:53:37 CDT by Isabelle Plata M.D. [id number] f
--- NOTE | 2021-10-08 19:27 | XRR_ITS ---
PROCEDURE INFORMATION: Exam: XR Chest Exam date and time: 10/08/2021 7:05 PM Age: 71 years old Clinical indication: Shortness of breath; Additional info: SOB TECHNIQUE: Imaging protocol: XR of the chest. Views: 1 view. COMPARISON: CR XR chest 1V portable [id number] 04/18/2021 4:09 PM FINDINGS: Lungs: Unremarkable. No consolidation. Pleural spaces: Unremarkable. No pleural effusion. No pneumothorax. Heart/Mediastinum: Unremarkable. No cardiomegaly. Bones/joints: Unremarkable. XR/XR chest 1V portable [id number] IMPRESSION: No acute findings.
[2021-10-08 19:31] VITALS: BP 104/74; PULSE 88; RESP 21; O2SAT 99
[2021-10-08 19:41] LABS: Basophils % 0.9 %; Eosinophils # 0.2 10^3/uL (0.0-0.8); Eosinophils % 3.9 %; Hemoglobin 16.5 g/dL (11.5-15.3); Lymphocytes # 1.2 10^3/uL (0.8-4.8); Lymphocytes % 25.4 %; Mean Corpuscular HGB Conc 32.4 g/dL (30.0-36.0); Mean Corpuscular Hemoglobin 30.2 pg (28.0-34.0); Mean Corpuscular Volume 93.2 fl (81-99); Mean Platelet Volume 10.6 fL (7.4-10.4); Monocytes # 0.6 10^3/uL (0.2-0.9); Monocytes % 13.7 %; Neutrophils # 2.56 10^3/uL (1.8-7.7); Neutrophils % 55.7 %; Nucleated Red Blood Cells % 0 %; Platelet Count 179 10^3/cmm (130-400); Red Blood Count 5.47 10^6/uL (4.1-5.3); Red Cell Distribution Width 12.4 % (12.1-15.1); White Blood Count 4.6 10^3/uL (4.0-10.0)
[2021-10-08 20:05] LABS: Alanine Aminotransferase 13 U/L (0-33); Albumin Level 4.2 g/dL (3.5-5.2); Alkaline Phosphatase 121 IU/L (35-105); Anion Gap 13.8 (5-19); Aspartate Amino Transferase 15 U/L (0-32); Blood Urea Nitrogen 14 mg/dL (8-23); Calcium 9.3 mg/dL (8.5-10.5); Carbon Dioxide 27 mmol/L (22-29); Chloride 107 mmol/L (98-107); Globulin 2.9 g/dL (1.3-4.6); Glucose 162 mg/dL (65-115); Osmolality Calculated 302 mOsm/kg (285-295); Potassium 3.8 mmol/L (3.5-5.1); Sodium 144 mmol/L (136-145); Total Bilirubin 0.2 mg/dL (0.15-1.2); Total Protein 7.1 g/dL (6.6-8.7)
[2021-10-08 20:06] LABS: Troponin(5th) Baseline 19 ng/L (0-10)
[2021-10-08 20:32] VITALS: PULSE 76; RESP 16; O2SAT 98
[2021-10-08] MEDS: ipratropium-albuterol 3 mL Neb INHALATION (20:32)
[2021-10-08] MEDS: doxycycline 100 MG in sodium chloride 0.9% (plus) 100 ML IV (21:03)
== END 2021-10-08 22:22 | disposition home or self-care (01) ==
PROVIDERS: Emergency Provider Emergency Medicine; PCP Family Medicine
DX: J44.1 Chronic obstructive pulmonary disease with (acute) exacerbation (principal); Z79.84 Long term (current) use of oral hypoglycemic drugs; I11.0 Hypertensive heart disease with heart failure; I50.30 Unspecified diastolic (congestive) heart failure; E11.9 Type 2 diabetes mellitus without complications; F17.210 Nicotine dependence, cigarettes, uncomplicated
CPT/HCPCS: 71045; 80053; 84484; 85025; 93005; 94640; 96365; 96375; 99284; J2930; J3490

== ENCOUNTER 2021-10-18 19:20 | Emergency (ER) | payer MEDICARE, MEDICAID, SELFPAY ==
[2021-10-18 19:25] VITALS: BP 150/84; PULSE 102; RESP 20; TEMP 36.8; O2SAT 98; BMI 42.8
--- NOTE | 2021-10-18 19:53 | XRR_ITS ---
PROCEDURE INFORMATION: Exam: XR Chest Exam date and time: 10/18/2021 8:05 PM Age: 71 years old Clinical indication: Cough and shortness of breath; Additional info: SOB TECHNIQUE: Imaging protocol: XR of the chest. Views: 1 view. COMPARISON: CR (CHEST, ) 10/08/2021 7:05 PM FINDINGS: Lungs: Unremarkable. No consolidation. Pleural spaces: Unremarkable. No pleural effusion. No pneumothorax. Heart/Mediastinum: Unremarkable. No cardiomegaly. Bones/joints: Unremarkable. XR/XR chest 1V portable [id number] IMPRESSION: No acute findings.
--- NOTE | 2021-10-18 19:54 | ECG_ITS ---
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 Measurements Intervals [place] Rate: 82 P: 68 [place]: 160 QRS: 27 QRSD: 83 T: 78 QT: 358 QTc: 420 Interpretive Statements SINUS RHYTHM LOW QRS VOLTAGE IN PRECORDIAL LEADS [QRS DEFLECTION < 1.0 mV IN CHEST LEADS] POSSIBLE ANTERIOR MYOCARDIAL INFARCTION , PROBABLY OLD [30 ms Q WAVE IN V3/V4, OR R < 0.2 mV IN V4] Compared to ECG 10/08/2021 19:02:33 Myocardial infarct finding now present Electronically Signed On 10-19-2021 11:32:28 CDT by Marcio So M.D. [id number]
[2021-10-18 20:10] LABS: Basophils % 0.4 %; Eosinophils % 0.1 %; Hematocrit 51.9 % (37.0-47.0); Hemoglobin 16.6 g/dL (11.5-15.3); Lymphocytes # 1.1 10^3/uL (0.8-4.8); Lymphocytes % 13.6 %; Mean Corpuscular Hemoglobin 30.1 pg (28.0-34.0); Mean Corpuscular Volume 94.2 fl (81-99); Monocytes # 0.3 10^3/uL (0.2-0.9); Monocytes % 3.1 %; Neutrophils % 82.1 %; Nucleated Red Blood Cells % 0 %; Platelet Count 213 10^3/cmm (130-400); Red Blood Count 5.51 10^6/uL (4.1-5.3); Red Cell Distribution Width 12.4 % (12.1-15.1); White Blood Count 8.2 10^3/uL (4.0-10.0)
[2021-10-18] MEDS: ipratropium-albuterol 3 mL Neb INHALATION (20:19)
[2021-10-18 20:21] VITALS: PULSE 80; RESP 16; O2SAT 97
[2021-10-18 20:22] LABS: D Dimer 0.82 ug/mIFEU (0-0.59)
[2021-10-18 20:23] LABS: Troponin(5th) Baseline 15 ng/L (0-10)
[2021-10-18 20:24] LABS: Lactic Sepsis W/Reflex 2.9 mmol/L (0.5-2.2)
[2021-10-18 20:30] LABS: Influenza A by IFA Negative (Negative); Influenza B by IFA Negative (Negative); SARS Covid-2 Antigen Negative (Negative)
[2021-10-18 20:31] LABS: NT Pro B Type Natriuretic Pept 366 pg/mL (0-125); Procalcitonin 0.04 ng/mL (0-0.5)
[2021-10-18 20:36] VITALS: PULSE 88
[2021-10-18 20:42] LABS: Alanine Aminotransferase 11 U/L (0-33); Albumin Level 4.2 g/dL (3.5-5.2); Alkaline Phosphatase 105 IU/L (35-105); Aspartate Amino Transferase 14 U/L (0-32); Blood Urea Nitrogen 25 mg/dL (8-23); Calcium 9.3 mg/dL (8.5-10.5); Carbon Dioxide 26 mmol/L (22-29); Chloride 107 mmol/L (98-107); Globulin 2.2 g/dL (1.3-4.6); Glucose 234 mg/dL (65-115); Osmolality Calculated 312 mOsm/kg (285-295); Sodium 145 mmol/L (136-145); Total Bilirubin 0.3 mg/dL (0.15-1.2); Total Protein 6.4 g/dL (6.6-8.7)
[2021-10-18 20:58] LABS: Add Urine Microscopic? NO; Charge for UA Resulting for Rev
[2021-10-18 21:00] LABS: Bilirubin Urine 1+ (Negative); Blood Urine Neg (Negative); Glucose Urine UA Norm (Normal); Ketones Urine Negative (Negative); Leukocyte Esterase Urine Negative (Negative); Nitrate Urine Negative (Negative); Protein Urine Neg (Negative); Specific Gravity, Urine 1.015 (1.005-1.030); Urine Appearance Clear (CLEAR); Urine Color Yellow (Yellow); Urobilinogen Urine 1 mg/dL (Negative); pH Urine 7 (5-7)
[2021-10-18 21:06] VITALS: BP 108/59; PULSE 92; RESP 30; O2SAT 91
--- NOTE | 2021-10-18 21:52 | ED_ITS ---
HPI - SOB/Dyspnea General: Chief Complaint: Shortness of Breath/Dyspnea Stated Complaint: sob Time Seen by Provider: 10/18/21 19:38 History of Present Illness: HPI Narrative: 71-year-old female with a history of COPD. She presents with cough, productive of clear slimy sputum, wheezing, and trouble breathing. She was seen last week with the same complaint. She was placed on prednisone and doxycycline without much improvement. She wears 2 L of oxygen at home she has been short of breath despite this, even walking to the bathroom. She has been using breathing treatments as well at home without much improvement. She denies any fever MD elicited complaint: shortness of breath, cough and chest pain (with cough) Pertinent past history: COPD Onset (ago): day(s) Context: recent illness Timing: constant Severity: moderate Exacerbating factors: lying flat and exertion Relieving factors: oxygen, bronchodilators and upright position Known history of: COPD Associated symptoms: Reports abdominal pain (with her hernia from coughing), chest congestion, chest pain, cough and nausea; Deny fever(s) or vomiting Treatment prior to arrival: oxygen, bronchodilator and other Review of Systems Const: Denies: fever(s) Eyes: Denies: change in vision Card: Reports: chest pain Resp: Reports: dyspnea, productive cough, wheezing and chest congestion; Denies: change in phlegm color GI: Reports: abdominal pain (with her hernia from coughing) and nausea; Denies: vomiting Neuro: Denies: headache(s) PFS ED PFSH: Medical History Attention-deficit hyperactivity disorder, combined type Diastolic CHF Enrolled in chronic care management Hernia of abdominal cavity HTN (hypertension) Insomnia Osteoarthritis Post-traumatic stress disorder, chronic Type 2 diabetes mellitus Surgical History H/O total hysterectomy Hx of appendectomy Hx of cholecystectomy Hx of tonsillectomy Family History Brother Cancer Lung Mother Diabetes CAD (coronary artery disease) Sister Diabetes CAD (coronary artery disease) Social History Smoking and tobacco status: current every day smoker cigarettes Packs smoked per day: 0.5 Years cigarettes smoked: 55 [ Other cigarette details: Hx of 3 PPD x 55 Years] Quit status (tobacco): considering quitting Second hand smoke exposure: Yes Smoking risk assessment/counseling performed?: Yes Alcohol intake: never Desire information about alcohol rehabilitation?: No Counseling given: No Desire information about substance/drug rehabilitation?: No Counseling given: No Lives independently: Yes Household members: family Marital status: / Current occupational status: retired History of recent travel: No Current gender identity: Female Physical Exam Const: GENERAL APPEARANCE: cooperative, ill appearing (mildly) and frail appearing (mildly) HENMT: COMMON NORMALS: normocephalic and atraumatic HEAD & SCALP: normocephalic and atraumatic Eye: COMMON NORMALS: Equal, round and reactive pupils present and EOMs intact bilaterally PUPIL: Yes Equal, round and reactive pupils present Chest: COMMONS NORMALS: normal inspection of the chest Resp: EFFORT & INSPECTION: Yes tachypneic, Yes labored (mildly) and Yes uses accessory muscles AUSCULTATION: rhonchi and wheezes Cardio: COMMON NORMALS: regular rate and regular rhythm RATE: regular rate RHYTHM: regular rhythm GI: COMMON NORMALS: Normal to inspection, nondistended, normoactive bowel sounds present and Soft to palpation PALPATION: Yes Soft to palpation OTHER: palpable soft ventral hernia Course Vital Signs: Vital signs: Vital Signs Temperature 98.2 F 10/18/21 19:25 Pulse Rate 85 10/18/21 22:20 Respiratory Rate 18 10/18/21 22:20 Blood Pressure 108/59 10/18/21 22:20 Pulse Oximetry 96 10/18/21 22:20 MDM - SOB/Dyspnea Medical Decision Making 71-year-old female with ongoing COPD exacerbation symptoms. Saturations are 98% on her home oxygen setting of 2 L. Blood gas shows a normal pH of 7.34 with no significant retention. PCO2 is 46.7. Hemoglobin is 16.6. White count is 8.2. BUN is 25, creatinine 1.1. Sugar is elevated at 234. Chest x-ray is negative. She is nontachycardic. She will be allowed home, with change of antibiotic, and a tapering dose of prednisone this time, hopefully to prevent rebound. Lab Data : 10/18/21 19:48 10/18/21 19:48 Labs/Radiology: Radiology Impressions Chest X-Ray 10/18/21 19:53 IMPRESSION: No acute findings. Laboratory Results WBC 8.2 10^3/uL (4.0-10.0) 10/18/21 19:48 RBC 5.51 10^6/uL (4.1-5.3) H 10/18/21 19:48 Hgb 16.6 g/dL (11.5-15.3) H 10/18/21 19:48 Hct 51.9 % (37.0-47.0) H 10/18/21 19:48 MCV 94.2 fl (81-99) 10/18/21 19:48 MCH 30.1 pg (28.0-34.0) 10/18/21 19:48 MCHC 32.0 g/dL (30.0-36.0) 10/18/21 19:48 RDW 12.4 % (12.1-15.1) 10/18/21 19:48 Plt Count 213 10^3/cmm (130-400) 10/18/21 19:48 MPV 11.0 fL (7.4-10.4) H 10/18/21 19:48 Neut % (Auto) 82.1 % 10/18/21 19:48 Lymph % (Auto) 13.6 % 10/18/21 19:48 [place] % (Auto) 3.1 % 10/18/21 19:48 Eos % (Auto) 0.1 % 10/18/21 19:48 Baso % (Auto) 0.4 % 10/18/21 19:48 Neut # (Auto) 6.70 10^3/uL (1.8-7.7) 10/18/21 19:48 Lymph # (Auto) 1.1 10^3/uL (0.8-4.8) 10/18/21 19:48 [place] # (Auto) 0.3 10^3/uL (0.2-0.9) 10/18/21 19:48 Eos # (Auto) 0.0 10^3/uL (0.0-0.8) 10/18/21 19:48 Baso # (Auto) 0.0 10^3/uL (0.0-0.1) 10/18/21 19:48 Nucleated RBC % (auto) 0 % 10/18/21 19:48 Nucleated RBCs # 0.0 /100WBC 10/18/21 19:48 D-Dimer 0.82 ug/mIFEU (0-0.59) H 10/18/21 19:48 Sodium 145 mmol/L (136-145) 10/18/21 19:48 Potassium 4.0 mmol/L (3.5-5.1) 10/18/21 19:48 Chloride 107 mmol/L (98-107) 10/18/21 19:48 Carbon Dioxide 26 mmol/L (22-29) 10/18/21 19:48 Anion Gap 16.0 (5-19) 10/18/21 19:48 BUN 25 mg/dL (8-23) H 10/18/21 19:48 Creatinine 1.1 mg/dL (0.5-0.9) H 10/18/21 19:48 GFR Calculation Not Reportable 10/18/21 19:48 Glucose 234 mg/dL (65-115) H 10/18/21 19:48 Calculated Osmolality 312 mOsm/kg (285-295) H 10/18/21 19:48 Lactic Acid 2.9 mmol/L (0.5-2.2) H 10/18/21 19:48 Calcium 9.3 mg/dL (8.5-10.5) 10/18/21 19:48 Total Bilirubin 0.3 mg/dL (0.15-1.2) 10/18/21 19:48 AST 14 U/L (0-32) 10/18/21 19:48 ALT 11 U/L (0-33) 10/18/21 19:48 Alkaline Phosphatase 105 IU/L (35-105) 10/18/21 19:48 Troponin T Baseline 15 ng/L (0-10) H 10/18/21 19:48 NT-Pro-B Natriuret Pep 366 pg/mL (0-125) H 10/18/21 19:48 Total Protein 6.4 g/dL (6.6-8.7) L 10/18/21 19:48 Albumin 4.2 g/dL (3.5-5.2) 10/18/21 19:48 Globulin 2.2 g/dL (1.3-4.6) 10/18/21 19:48 Procalcitonin 0.04 ng/mL (0-0.5) 10/18/21 19:48 Urine Color Yellow (Yellow) 10/18/21 20:46 Urine Appearance Clear (CLEAR) 10/18/21 20:46 Urine pH 7 (5-7) 10/18/21 20:46 Ur Specific [place] 1.015 (1.005-1.030) 10/18/21 20:46 Urine Protein Neg (Negative) 10/18/21 20:46 Urine Glucose (UA) Norm (Normal) 10/18/21 20:46 Urine Ketones Negative (Negative) 10/18/21 20:46 Urine Blood Neg (Negative) 10/18/21 20:46 Urine Nitrate Negative (Negative) 10/18/21 20:46 Urine Bilirubin 1+ (Negative) H 10/18/21 20:46 Urine Urobilinogen 1 mg/dL (Negative) H 10/18/21 20:46 Ur Leukocyte Esterase Negative (Negative) 10/18/21 20:46 Influenza Type A Ag Negative (Negative) 10/18/21 19:58 Influenza Type B Ag Negative (Negative) 10/18/21 19:58 SARS-CoV-2 Ag (Rapid) Negative (Negative) 10/18/21 19:58 Discharge Plan Discharge Patient Disposition: Home Clinical Impression: Acute exacerbation of chronic obstructive airways disease Condition: Stable Prescriptions: New prednisone 10 mg tablet See Rx Instructions .ROUTE .COMPLEX Qty: 28 0RF Rx Instructions: 4 PO QDx4d, 2 PO QDx4d, 1 PO QDx4d Zithromax 250 mg tablet See Rx Instructions .ROUTE .COMPLEX Qty: 6 0RF Rx Instructions: For 250 mg dose pack: take 500 mg today (day 1), then 250 mg for 4 days (days 2-5) No Action omeprazole magnesium [Acid Continuous Mining Machine Operator (omeprazole)] 20 mg capsule,delayed release(DR/EC) 20 mg PO DAILY 0RF methylphenidate HCl [Ritalin] 20 mg tablet 20 mg PO BID 30 Days Qty: 60 0RF Linzess 290 mcg capsule 290 mcg PO DAILY 0RF atorvastatin 20 mg tablet 20 mg PO DAILY 0RF nicotine 14 mg/24 hr patch 24 hour 1 patch transdermal DAILY 0RF prazosin 1 mg capsule 1 mg PO DAILY 0RF ondansetron HCl 8 mg tablet 8 mg PO Q8H PRN (Reason: nausea and vomiting) 0RF terconazole 0.8 % cream 0.8 applic vaginal DAILY PRN (Reason: Itching) 0RF flunisolide 25 mcg (0.025 %) spray,non-aerosol 2 spray intranasal BID 0RF cyanocobalamin (vitamin B-12) 1,000 mcg/mL solution 1,000 mcg IM .weekly 0RF nystatin 100,000 unit/gram cream 1 applic topical BID 0RF lidocaine 5 % adhesive patch,medicated 1 patch topical DAILY 0RF Rx Instructions: leave on most painful area for up to 12 hrs mupirocin 2 % ointment 1 applic topical TID 0RF silver sulfadiazine [SSD] 1 % cream 1 applic topical BID PRN (Reason: Itching) 0RF Rx Instructions: apply a 1.5 mm thickness senna 8.6 mg capsule 17.2 mg PO DAILY 0RF ipratropium-albuterol 0.5 mg-3 mg(2.5 mg base)/3 mL solution for nebulization 3 ml inhalation Q4H PRN (Reason: wheezing) Qty: 90 3RF guaifenesin [Mucinex Fast-Max Chest-Congest] 100 mg/5 mL liquid 200 mg PO Q6H PRN (Reason: cough) Qty: 1000 3RF lisinopril 20 mg tablet 20 mg PO DAILY Qty: 30 3RF lactulose [Constulose] 10 gram/15 mL solution 10 g PO BID 0RF gabapentin 600 mg tablet 600 mg PO TID 0RF hydrocodone-acetaminophen 10-325 mg tablet 1 - 2 tab PO .q4-6h PRN (Reason: Pain) 0RF hydroxyzine HCl 50 mg tablet 50 - 100 mg PO QID PRN (Reason: Nausea) 0RF ibuprofen 800 mg tablet 800 mg PO TID 0RF levocetirizine 5 mg tablet 5 mg PO DAILY 0RF metformin 500 mg tablet 500 mg PO BID 0RF montelukast 10 mg tablet 10 mg PO DAILY 0RF Narcan 4 mg/actuation spray,non-aerosol 4 mg intranasal Q3M PRN (Reason: Opioid Overdose) 0RF Rx Instructions: spray 1 dose into ONE nostril; alternate nostrils w each dose until help arrives nitroglycerin 0.1 mg/hr patch 24 hour 1 patch transdermal DAILY PRN (Reason: chest pain) 0RF Rx Instructions: allow nitrate-free interval of approx. 10-12 hrs per 24-hour period potassium chloride 10 mEq tablet,ER particles/crystals 10 meq PO DAILY 0RF topiramate 200 mg tablet 200 mg PO BID 0RF Toviaz 8 mg tablet extended release 24 hr 8 mg PO DAILY 0RF albuterol sulfate [Ventolin HFA] 90 mcg/actuation HFA aerosol inhaler 2 puff inhalation Q6H PRN (Reason: Shortness Of Breath) 0RF furosemide 40 mg tablet 60 mg PO DAILY 0RF Trelegy Ellipta 100-62.5-25 mcg blister with device 1 inh inhalation DAILY Qty: 180 3RF lisinopril 10 mg tablet 10 mg PO DAILY 0RF spironolactone 50 mg tablet 50 mg PO DAILY 0RF benzonatate 100 mg capsule 100 mg PO BID PRN (Reason: cough) Qty: 10 0RF Discharge Orders: Discharge ED (Routine); Ordered 10/18/21 Ordered By: Lupillo Perez Referrals: Janell Khan MD [Primary Care Provider] - Patient Instructions: COPD (Chronic Obstructive Pulmonary Disease) (ED), Opioid Safety Activity Restrictions/Additional Instructions: Return for worsening chest pain despite treatment, worsening shortness of breath despite treatment, mental status changes, vomiting liquids or medications, any other concerning symptoms. Coding Level of Care Code ED [employer] Boards Beveler for Chg Fwd Exam Detailed
[2021-10-18 21:54] LABS: Reflex Lactate Order REFLEX LACTIC ORDERD
[2021-10-18 22:20] VITALS: BP 108/59; PULSE 85; RESP 18; O2SAT 96
[2021-10-18 22:36] VITALS: BP 108/59; PULSE 91; RESP 30; O2SAT 98
[2021-10-18] MEDS: azithromycin 250 mg Tablet 500 MG PO (22:36)
[2021-10-18 22:42] LABS: Lactic Acid level (Lactate) 2.1 mmol/L (0.5-2.2)
[2021-10-18 22:43] LABS: Troponin 5 2HR 12.82 ng/L (0-10)
[2021-10-18 22:44] LABS: Troponin 5 2HR Delta -2.18 ABS# (0-10)
== END 2021-10-18 22:41 | disposition home or self-care (01) ==
PROVIDERS: Emergency Provider Emergency Medicine; PCP Family Medicine
DX: J44.1 Chronic obstructive pulmonary disease with (acute) exacerbation (principal); F17.210 Nicotine dependence, cigarettes, uncomplicated; I11.0 Hypertensive heart disease with heart failure; I50.9 Heart failure, unspecified; E11.9 Type 2 diabetes mellitus without complications; Z79.891 Long term (current) use of opiate analgesic; Z79.84 Long term (current) use of oral hypoglycemic drugs; Z79.51 Long term (current) use of inhaled steroids
CPT/HCPCS: 36600; 71045; 80053; 81003; 82805; 83605; 83880; 84145; 84484; 85025; 85378; 87040; 87426; 87804; 93005; 94640; 96374; 99284; J2930; Q0144

== ENCOUNTER → 2022-04-10 13:50 | Outpatient (BNVA) | payer MEDICARE, MEDICAID, SELFPAY | PROVIDERS: PCP Family Medicine; Visit Provider Surgery | DX: K43.2 Incisional hernia without obstruction or gangrene (principal) | CPT/HCPCS: 99203 ==

== ENCOUNTER 2022-08-26 19:29 | Emergency (ER) | payer MEDICARE, MEDICAID, SELFPAY ==
[2022-08-26 19:46] VITALS: BMI 49.3
--- NOTE | 2022-08-26 22:00 | USR_ITS ---
PROCEDURE INFORMATION: Exam: US Duplex Right Upper Extremity Veins, Limited Exam date and time: 08/26/2022 10:21 PM Age: 71 years old Clinical indication: Arm, upper; Right; Patient HX: Patient had blood draw from RT antecubital at [facility] on July 22, 2022. She has suffered RT upper arm pain ever since. Patient states that an ultrasound of the RT upper extremity was performed at [facility] and was negative. C/O continued acute RT upper arm pain. ; Additional info: Pain and swelling right upper arm from ac space to shoulder TECHNIQUE: Imaging protocol: Real-time duplex ultrasound of the Right Upper Extremity with 2-D coelho scale, color Doppler flow and spectral waveform analysis with image documentation. Limited exam focused on the right upper extremity veins. COMPARISON: CT lung screening [id number] 03/06/2021 11:10 AM FINDINGS: Right deep veins: Unremarkable. Axillary and brachial veins are patent throughout without thrombus. Normal Doppler waveforms. Normal compressibility and/or augmentation response. Visualized internal jugular and subclavian veins are patent. Right superficial veins: Unremarkable. Visualized cephalic and basilic veins are patent without thrombus. Soft tissues: Unremarkable. US/[place] [id number] IMPRESSION: No evidence of deep vein thrombosis.
--- NOTE | 2022-08-26 22:16 | W.ED.EXTPRO ---
HPI - Extremity Problem General: Chief complaint: Extremity Injury, Upper Stated complaint: right arm has a knot that is getting bigger Time Seen by Provider: 08/26/22 21:47 History of Present Illness: Patient is in today for pain in her right arm. She reports that approximately the beginning of July she had blood drawn from her right AC space. She reports that since then she has had a knot just above that area of blood draw and it seems to be moving up her arm. She reports that it hurts from her right AC space all the way to her right shoulder. She reports some swelling of the arm. She is on chronic oxygen. She denies any chest pain or increased shortness of breath. Associated symptoms: Deny chest pain or fever(s) Review of Systems Const: Denies: fever(s), chills or body aches Card: Denies: chest pain, palpitations, irregular heart rhythm, lightheadedness or syncope Resp: Denies: dyspnea, productive cough or non-productive cough GI: Denies: abdominal pain, nausea or vomiting : Denies: flank pain, difficulty voiding, dysuria, urinary frequency, urinary urgency or urinary hesitancy Musc: Reports: extremity pain (Right upper arm); Denies: neck pain or back pain Neuro: Denies: headache(s), numbness in extremities or weakness in extremities PFSH ED PFSH: Medical History Attention-deficit hyperactivity disorder, combined type Diastolic CHF Enrolled in chronic care management Hernia of abdominal cavity HTN (hypertension) Insomnia Osteoarthritis Post-traumatic stress disorder, chronic Type 2 diabetes mellitus Surgical History H/O total hysterectomy Hx of appendectomy Hx of cholecystectomy Hx of tonsillectomy Family History Brother Cancer Lung Mother Diabetes CAD (coronary artery disease) Sister Diabetes CAD (coronary artery disease) Social History Smoking and tobacco status: never smoked Quit status (tobacco): considering quitting Second hand smoke exposure: Yes Smoking risk assessment/counseling performed?: Yes Alcohol intake: never Desire information about alcohol rehabilitation?: No Counseling given: No Desire information about substance/drug rehabilitation?: No Counseling given: No Lives independently: Yes Household members: family Marital status: / Current occupational status: retired History of recent travel: No Current gender identity: Female Physical Exam Const: COMMON NORMALS: no acute distress, patient oriented x3 and alert GENERAL APPEARANCE: cooperative ORIENTATION/CONSCIOUSNESS: Yes awake, Yes oriented to person, Yes oriented to place and Yes oriented to time Resp: COMMON NORMALS: normal respiratory effort, No retractions, No use of accessory muscles and clear to auscultation bilaterally EFFORT & INSPECTION: Yes symmetric chest movement AUSCULTATION: clear to auscultation bilaterally Cardio: COMMON NORMALS: regular rate, regular rhythm, S1 normal heart sound present and S2 normal heart sound present RATE: regular rate RHYTHM: regular rhythm HEART SOUNDS: S1 normal heart sound present and S2 normal heart sound present Extremity: NARRATIVE EXTREMITY EXAM: Patient has tenderness to palpation right AC region extending proximally up the arm to the shoulder. This pain is reproduced with palpation. There is slight swelling appreciated. There is a soft tissue lump appreciated just above the AC on the mid upper arm. Palpation of that specific area elicits pain response. CSM within normal limits to distal arm. Ulnar and radial pulses are palpable strong intact. Neuro: COMMON NORMALS: patient oriented x3 SENSORIUM/ORIENTATION: Yes alert, Yes oriented to person, Yes oriented to place and Yes oriented to time Psych: COMMON NORMALS: cooperative Course Vital Signs: Vital signs: Vital Signs Pulse Rate 91 08/27/22 00:04 Respiratory Rate 20 H 08/27/22 00:04 Blood Pressure 174/97 08/26/22 23:11 Pulse Oximetry 94 08/27/22 00:04 Oxygen Delivery Me thod 08/26/22 23:11 Oxygen Flow Rate 2.5 08/26/22 23:11 MDM - Extremity (Nontraumatic) Medical Decision Making Differentials include right upper extremity pain, muscle strain, DVT Ultrasound right upper arm negative for DVT We will discharge patient home in stable condition. Follow-up with her primary care provider for continued evaluation and management. Return to the ER as needed for new or worsening symptoms Lab Data Radiology Impressions Venous Duplex 08/26/22 22:00 IMPRESSION: No evidence of deep vein thrombosis. Discharge Plan Discharge Patient Disposition: Home Clinical Impression: Arm pain, right Condition: Stable Prescriptions: No Action omeprazole magnesium [Acid Retirement Plan Specialist (omeprazole)] 20 mg capsule,delayed release(DR/EC) 20 mg PO DAILY methylphenidate HCl [Ritalin] 20 mg tablet 20 mg PO BID 30 Days Qty: 60 0RF Linzess 290 mcg capsule 290 mcg PO DAILY atorvastatin 20 mg tablet 20 mg PO DAILY nicotine 14 mg/24 hr patch 24 hour 1 patch transdermal DAILY prazosin 1 mg capsule 1 mg PO DAILY ondansetron HCl 8 mg tablet 8 mg PO Q8H PRN (Reason: nausea and vomiting) terconazole 0.8 % cream 0.8 applic vaginal DAILY PRN (Reason: Itching) flunisolide 25 mcg (0.025 %) spray,non-aerosol 2 spray intranasal BID cyanocobalamin (vitamin B-12) 1,000 mcg/mL solution 1,000 mcg IM .weekly nystatin 100,000 unit/gram cream 1 applic topical BID lidocaine 5 % adhesive patch,medicated 1 patch topical DAILY Rx Instructions: leave on most painful area for up to 12 hrs mupirocin 2 % ointment 1 applic topical TID silver sulfadiazine [SSD] 1 % cream 1 applic topical BID PRN (Reason: Itching) Rx Instructions: apply a 1.5 mm thickness senna 8.6 mg capsule 17.2 mg PO DAILY ipratropium-albuterol 0.5 mg-3 mg(2.5 mg base)/3 mL solution for nebulization 3 ml inhalation Q4H PRN (Reason: wheezing) Qty: 90 3RF guaifenesin [Mucinex Fast-Max Chest-Congest] 100 mg/5 mL liquid 200 mg PO Q6H PRN (Reason: cough) Qty: 1000 3RF lisinopril 20 mg tablet 20 mg PO DAILY Qty: 30 3RF lactulose [Constulose] 10 gram/15 mL solution 10 g PO BID gabapentin 600 mg tablet 600 mg PO TID hydrocodone-acetaminophen 10-325 mg tablet 1 - 2 tab PO .q4-6h PRN (Reason: Pain) hydroxyzine HCl 50 mg tablet 50 - 100 mg PO QID PRN (Reason: Nausea) ibuprofen 800 mg tablet 800 mg PO TID levocetirizine 5 mg tablet 5 mg PO DAILY metformin 500 mg tablet 500 mg PO BID montelukast 10 mg tablet 10 mg PO DAILY Narcan 4 mg/actuation spray,non-aerosol 4 mg intranasal Q3M PRN (Reason: Opioid Overdose) Rx Instructions: spray 1 dose into ONE nostril; alternate nostrils w each dose until help arrives nitroglycerin 0.1 mg/hr patch 24 hour 1 patch transdermal DAILY PRN (Reason: chest pain) Rx Instructions: allow nitrate-free interval of approx. 10-12 hrs per 24-hour period potassium chloride 10 mEq tablet,ER particles/crystals 10 meq PO DAILY topiramate 200 mg tablet 200 mg PO BID Toviaz 8 mg tablet extended release 24 hr 8 mg PO DAILY albuterol sulfate [Ventolin HFA] 90 mcg/actuation HFA aerosol inhaler 2 puff inhalation Q6H PRN (Reason: Shortness Of Breath) furosemide 40 mg tablet 60 mg PO DAILY Trelegy Ellipta 100-62.5-25 mcg blister with device 1 inh inhalation DAILY Qty: 180 3RF lisinopril 10 mg tablet 10 mg PO DAILY spironolactone 50 mg tablet 50 mg PO DAILY benzonatate 100 mg capsule 100 mg PO BID PRN (Reason: cough) Qty: 10 0RF prednisone 10 mg tablet See Rx Instructions .ROUTE .COMPLEX Qty: 28 0RF Rx Instructions: 4 PO QDx4d, 2 PO QDx4d, 1 PO QDx4d Zithromax 250 mg tablet See Rx Instructions .ROUTE .COMPLEX Qty: 6 0RF Rx Instructions: For 250 mg dose pack: take 500 mg today (day 1), then 250 mg for 4 days (days 2-5) Discharge Orders: Discharge ED (Routine); Ordered 08/26/22 Ordered By: Regla Castillo Referrals: Marcy Crystal FNP [Primary Care Provider] - Discharge Diet: Usual diet Discharge Activity: Resume usual activity Activity Restrictions/Additional Instructions: Your ultrasound tonight did not show any evidence of blood clot. I recommend you continue following up with your primary care provider for further evaluation and monitoring of your arm pain. Return to the ER as needed for any new or worsening symptoms Coding Level of Care Code ED [employer] Jointer for Guero Bruno
[2022-08-26 23:11] VITALS: BP 174/97; PULSE 89; RESP 19; O2SAT 97
[2022-08-27 00:04] VITALS: PULSE 91; RESP 20; O2SAT 94
== END 2022-08-27 00:05 | disposition home or self-care (01) ==
PROVIDERS: Emergency Provider Nurse Practitioner Family; PCP Nurse Practitioner Family
DX: M79.601 Pain in right arm (principal); Z79.84 Long term (current) use of oral hypoglycemic drugs; Z77.22 Contact with and (suspected) exposure to environmental tobacco smoke (acute) (chronic); I11.0 Hypertensive heart disease with heart failure; I50.30 Unspecified diastolic (congestive) heart failure; E11.9 Type 2 diabetes mellitus without complications
CPT/HCPCS: 93971; 99284

== ENCOUNTER → 2023-03-17 11:17 | Outpatient (BNVA) | payer MEDICARE, SELFPAY | PROVIDERS: PCP Nurse Practitioner Family; Visit Provider Dermatology | DX: D04.61 Carcinoma in situ of skin of right upper limb, including shoulder (principal); D04.62 Carcinoma in situ of skin of left upper limb, including shoulder; L57.0 Actinic keratosis; L98.8 Other specified disorders of the skin and subcutaneous tissue; L57.8 Other skin changes due to chronic exposure to nonionizing radiation; L81.4 Other melanin hyperpigmentation | CPT/HCPCS: 17000; 17003; 99204 ==

== ENCOUNTER → 2023-05-26 13:25 | Outpatient (BNVA) | payer MEDICARE, SELFPAY | PROVIDERS: PCP Nurse Practitioner Family; Visit Provider Student in an Organized Health Care Education/Training Program | DX: M25.561 Pain in right knee (principal); M25.562 Pain in left knee; M17.0 Bilateral primary osteoarthritis of knee | CPT/HCPCS: 73560; 73565; 99204 ==

== ENCOUNTER 2023-07-02 20:17 | Emergency (ER) | payer MEDICARE, MEDICAID, SELFPAY ==
[2023-07-02 20:24] VITALS: BP 132/71; PULSE 78; RESP 20; TEMP 36.6; O2SAT 98; BMI 46.4
--- NOTE | 2023-07-02 20:54 | XRR_ITS ---
PROCEDURE INFORMATION: Exam: XR Left Hip Exam date and time: 07/02/2023 9:03 PM Age: 72 years old Clinical indication: Hip pain; Left hip; Additional info: Pain, fall TECHNIQUE: Imaging protocol: Radiologic exam of the left hip. Views: 2 or 3 views hip with pelvis when performed. COMPARISON: CT abdomen pelvis w con* [id number] 04/18/2021 5:50 PM FINDINGS: Tubes, catheters and devices: Stimulation electrode in the left sacrum region and stimulation device in the left pelvis soft tissues. Bones/joints: No acute fracture or dislocation. Soft tissues: See Intraperitoneal space finding. Intraperitoneal space: Multiple surgical clips in bilateral pelvis. Previous hernia repair in bilateral lower abdomen. XR/XR hip LT 2-3V wo/w pel* [id number] IMPRESSION: 1. No acute fracture or dislocation. 2. Stimulation electrode in the left sacrum region and stimulation device in the left pelvis soft tissues. 3. Multiple surgical clips in bilateral pelvis. Previous hernia repair in bilateral lower abdomen.
--- NOTE | 2023-07-02 20:58 | XRR_ITS ---
PROCEDURE INFORMATION: Exam: XR Chest Exam date and time: 07/02/2023 9:03 PM Age: 72 years old Clinical indication: Cough and wheezing; Additional info: Cough, wheezing TECHNIQUE: Imaging protocol: Radiologic exam of the chest. Views: 1 view. COMPARISON: CR XR chest 1V portable [id number] 10/18/2021 8:05 PM and 10/08/2021, chest CT dated 03/06/2021. FINDINGS: Lungs: No consolidation or pulmonary edema. Stable 5 mm benign calcified granuloma in the left lung lower lobe. Pleural spaces: No pleural effusion. No pneumothorax. Heart/Mediastinum: Cardiomediastinal silhouette is normal in size. Bones/joints: No acute fractures. XR/XR chest 1V portable [id number] IMPRESSION: No acute findings and no change.
--- NOTE | 2023-07-02 20:58 | CTR_ITS ---
PROCEDURE INFORMATION: Exam: CT Head Without Contrast Exam date and time: 07/02/2023 9:35 PM Age: 72 years old Clinical indication: Dizziness TECHNIQUE: Imaging protocol: Computed tomography of the head without contrast. Radiation optimization: All CT scans at this facility use at least one of these dose optimization techniques: automated exposure control; mA and/or kV adjustment per patient size (includes targeted exams where dose is matched to clinical indication); or iterative reconstruction. REPORTING DATA: Count of CT and Cardiac NM exams in prior 12 months: This patient has received 0 known CTs and 0 known cardiac nuclear medicine studies in the 12 months prior to the current study. COMPARISON: CT cervical spin wo con* [id number] 04/22/2018 2:49 PM RADIATION DOSE METRICS: Total DLP (mGy-cm): 1055.58 FINDINGS: Brain: An 8 mm ill-defined hypodensity in the left kody is indeterminate and may be caused by an artifact, but an ischemic infarct of indeterminate age in the left kody can not be excluded. No acute intracranial hemorrhage. No mass effect or midline shift. No acute extraaxial fluid collection. Unremarkable white matter. Cerebral ventricles: No ventriculomegaly. Paranasal sinuses: Partially visualized sinuses are unremarkable. No fluid levels. Mastoid air cells: Visualized mastoid air cells are well aerated. Bones/joints: Unremarkable. No acute calvarial fracture. Soft tissues: Unremarkable. CT/CT head wo con* [id number] IMPRESSION: 1. An 8 mm ill-defined hypodensity in the left kody is indeterminate and may be caused by an artifact, but an ischemic infarct of indeterminate age in the left kody can not be excluded. Brain MRI without IV contrast is recommended to further evaluate. 2. No acute intracranial hemorrhage.
--- NOTE | 2023-07-02 20:59 | ECG_ITS ---
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 Measurements Intervals [place] Rate: 84 P: 64 OR: 174 QRS: 27 QRSD: 78 T: 78 QT: 366 QTc: 434 Interpretive Statements SINUS RHYTHM LOW QRS VOLTAGE IN PRECORDIAL LEADS [QRS DEFLECTION < 1.0 mV IN CHEST LEADS] ANTEROSEPTAL MYOCARDIAL INFARCTION , OF INDETERMINATE AGE [40+ ms Q WAVE IN V1-V4] Compared to ECG 10/18/2021 20:10:56 No significant changes Electronically Signed On 07-02-2023 21:41:17 BUILDING ENERGY RETROFIT TECHNICIAN by Isabelle Plata M.D. [id number]
--- NOTE | 2023-07-02 21:01 | ED_ITS ---
HPI - Fall 2 General: Chief Complaint: Fall Stated Complaint: fall, dizzy, hit on left side Time Seen by Provider: 07/02/23 20:54 History of Present Illness: Patient reports today whenever she is moved she has felt really dizzy. Tonight she went to get up to go to bed and became more dizzy causing her to fall onto her left side. Patient is able to ambulate but has to be assisted due to the dizziness. Patient reports no prior episodes. Patient denies any pain or shortness of breath. Patient has a history of COPD, chronic back pain, hyperlipidemia, hypertension, CHF. Associated symptoms-after fall: Denies chest pain, headache(s) or neck pain Review of Systems 2 General: Reports: 10 or more systems reviewed and unremarkable except in HPI and below Const: Denies: fever(s) Card: Denies: chest pain Resp: Denies: dyspnea GI: Reports: nausea : Denies: difficulty voiding Musc: Reports: joint pain (Left hip); Denies: neck pain or back pain Skin/Breast: Reports: other (Abrasion left arm superficial) Neuro: Denies: headache(s) PFSH ED 2 PFSH: Medical History Attention-deficit hyperactivity disorder, combined type Diastolic CHF Enrolled in chronic care management Hernia of abdominal cavity HTN (hypertension) Insomnia Osteoarthritis Post-traumatic stress disorder, chronic Type 2 diabetes mellitus Surgical History H/O total hysterectomy Hx of appendectomy Hx of cholecystectomy Hx of tonsillectomy Family History Brother Cancer Lung Mother Diabetes CAD (coronary artery disease) Sister Diabetes CAD (coronary artery disease) Social History Smoking and tobacco/nicotine status: never used tobacco/nicotine Quit status (tobacco/nicotine): considering quitting Second hand smoke exposure: Yes Alcohol intake: never Substance/Drug Use: never Lives independently: Yes Household members: family Marital status: / Current occupational status: retired Do you think of yourself as: Straight/Heterosexual Current gender identity: Female Physical Exam 2 Const: COMMON NORMALS: alert HENMT: COMMON NORMALS: normocephalic HEAD & SCALP: normocephalic Neck/C-Spine: COMMON NORMALS: full ROM Resp: COMMON NORMALS: normal respiratory effort and clear to auscultation bilaterally AUSCULTATION: clear to auscultation bilaterally Cardio: COMMON NORMALS: regular rate and regular rhythm RATE: regular rate RHYTHM: regular rhythm GI: COMMON NORMALS: Soft to palpation PALPATION: Yes Soft to palpation Back/Pelvis: COMMON NORMALS: thoracic and lumbar spine normal to inspection Extremity: COMMON NORMALS: full ROM Neuro: SENSORIUM/ORIENTATION: Yes alert Psych: COMMON NORMALS: cooperative Skin: COMMON NORMALS: turgor normal GENERAL SKIN EXAM: turgor normal Course 2 Vital Signs: Vital signs: Vital Signs Temperature 97.9 F 07/02/23 20:24 Pulse Rate 78 07/02/23 20:24 Respiratory Rate 20 H 07/02/23 20:24 Blood Pressure 132/71 07/02/23 20:24 Pulse Oximetry 98 07/02/23 20:24 MDM - Fall Medical Decision Making Patient comes in today for complaints of fall secondary to dizziness. On exam patient appears nontoxic. NIH stroke scale is 0. Patient moves all extremities well. Abdomen soft bowel sounds are present. No deformities are noted in the extremity. Patient has cerumen in bilateral ear canals. Patient has wheezing throughout lung jarrett. Differential diagnosis includes but not limited to pneumonia, unlikely stroke syndrome, cardiac arrhythmia, contusion, fracture, electrolyte imbalance, anxiety, BPV. Patient was given 25 mg of meclizine which improved her dizziness. CBC and CMP were unremarkable. X-rays of the hip and chest were normal. Patient's CT noted a hypodensity in the left kody that may be secondary to artifact or ischemic infarct. I reviewed the CT with Dr. Lyn, on-call neurologist. She believe patient could go home because she could ambulate without difficulty. Patient was able to ambulate with minimal to no assist in the hospital. She recommended follow-up with primary care for further evaluation and treatment or return to the ER for worsening symptoms. She thought most likely patient did have a small stroke but believes that it could be managed outpatient. I reviewed this with patient who agreed to plan. Lab Data 07/02/23 21:07 07/02/23 21:07 Radiology Impressions Hip/Pelvis X-Ray 07/02/23 20:54 IMPRESSION: 1. No acute fracture or dislocation. 2. Stimulation electrode in the left sacrum region and stimulation device in the left pelvis soft tissues. 3. Multiple surgical clips in bilateral pelvis. Previous hernia repair in bilateral lower abdomen. Chest X-Ray 07/02/23 20:58 IMPRESSION: No acute findings and no change. Head CT 07/02/23 20:58 IMPRESSION: 1. An 8 mm ill-defined hypodensity in the left kody is indeterminate and may be caused by an artifact, but an ischemic infarct of indeterminate age in the left kody can not be excluded. Brain MRI without IV contrast is recommended to further evaluate. 2. No acute intracranial hemorrhage. ADDENDUM: 07/02/23 2300 The ordering nurse practitioner, RAFAEL BARAHONA was informed by phone by Dr. Jackson about the findings and recommendations on 07/02/2023 at 10:58 PM VIDEO GAME REPAIR TECHNICIAN. The ordering nurse practitioner verbalized understanding. Laboratory Results WBC 8.33 10^3/uL (3.29-11.43) 07/02/23 21:07 RBC 5.38 10^6/uL (3.85-5.65) 07/02/23 21:07 Hgb 16.00 g/dL (11.27-16.99) 07/02/23 21:07 Hct 49.0 % (36-47) H 07/02/23 21:07 MCV 91.1 fl (85-98) 07/02/23 21:07 MCH 29.7 pg (27-33) 07/02/23 21:07 MCHC 32.7 g/dL (30-55) 07/02/23 21:07 RDW 12.8 % (12.1-15.1) 07/02/23 21:07 Plt Count 215 10^3/cmm (157-399) 07/02/23 21:07 MPV 9.6 fL (7.4-10.4) 07/02/23 21:07 Neut % (Auto) 61.6 % 07/02/23 21:07 Lymph % (Auto) 25.7 % 07/02/23 21:07 [place] % (Auto) 9.5 % 07/02/23 21:07 Eos % (Auto) 2.5 % 07/02/23 21:07 Baso % (Auto) 0.5 % 07/02/23 21:07 Neut # (Auto) 5.13 10^3/uL (1.8-7.7) 07/02/23 21:07 Lymph # (Auto) 2.1 10^3/uL (0.8-4.8) 07/02/23 21:07 [place] # (Auto) 0.8 10^3/uL (0.2-0.9) 07/02/23 21:07 Eos # (Auto) 0.2 10^3/uL (0.0-0.8) 07/02/23 21:07 Baso # (Auto) 0.0 10^3/uL (0.0-0.1) 07/02/23 21:07 Nucleated RBC % (auto) 0 % 07/02/23 21:07 Nucleated RBCs # 0.0 /100WBC 07/02/23 21:07 Sodium 142 mmol/L (136-145) 07/02/23 21:07 Potassium 4.7 mmol/L (3.5-5.1) 07/02/23 21:07 Chloride 105 mmol/L (98-107) 07/02/23 21:07 Carbon Dioxide 27 mmol/L (22-29) 07/02/23 21:07 Anion Gap 14.7 (5-19) 07/02/23 21:07 BUN 18 mg/dL (8-23) 07/02/23 21:07 Creatinine 0.8 mg/dL (0.5-0.9) 07/02/23 21:07 GFR Calculation Not Reportable 07/02/23 21:07 Glucose 102 mg/dL (65-115) 07/02/23 21:07 Calculated Osmolality 296 mOsm/kg (285-295) H 07/02/23 21:07 Calcium 9.5 mg/dL (8.5-10.5) 07/02/23 21:07 Total Bilirubin 0.3 mg/dL (0.15-1.2) 07/02/23 21:07 AST 18 U/L (0-32) 07/02/23 21:07 ALT 16 U/L (0-33) 07/02/23 21:07 Alkaline Phosphatase 86 U/L (35-105) 07/02/23 21:07 Total Protein 7.1 g/dL (6.6-8.7) 07/02/23 21:07 Albumin 4.0 g/dL (3.5-5.2) 07/02/23 21:07 Globulin 3.1 g/dL (1.3-4.6) 07/02/23 21:07 Urine Color Colorless (Yellow) 07/02/23 22:31 Urine Appearance Hazy (CLEAR) A 07/02/23 22:31 Urine pH 6 (5-7) 07/02/23 22:31 Ur Specific [place] 1.010 (1.005-1.030) 07/02/23 22:31 Urine Protein Neg (Negative) 07/02/23 22:31 Urine Glucose (UA) Norm (Normal) 07/02/23 22:31 Urine Ketones Negative (Negative) 07/02/23 22:31 Urine Blood Neg (Negative) 07/02/23 22:31 Urine Nitrate Positive (Negative) H 07/02/23 22:31 Urine Bilirubin Neg (Negative) 07/02/23 22:31 Urine Urobilinogen Neg mg/dL (Negative) 07/02/23 22:31 Ur Leukocyte Esterase 1+ (Negative) H 07/02/23 22:31 Urine RBC None /hpf (0-2) 07/02/23 22:31 Urine WBC 5-10 /hpf (0-5) H 07/02/23 22:31 Ur Squamous Epith Cells 0-4 /hpf (0-5) H 07/02/23 22:31 Amorphous Sediment Not Reportable 07/02/23 22:31 Urine Bacteria 3+ /hpf (NONE) H 07/02/23 22:31 All radiology interpretation(s) finalized by discharge EKG Data EKG 1: EKG interpretation date: 07/02/23 EKG interpretation time: 21:30 Prior EKG tracings: not available for review Interpretation: EKG shows a sinus rhythm with a regular rate at [address] elevation or ectopy is noted. No prior exam was available for comparison at this time. Computer generated interpretation: Sinus rhythm, low QRS voltage in precordial leads, anteroseptal myocardial infarction of indeterminate age, abnormal EKG, unconfirmed report. Discharge Plan Discharge Patient Disposition: Home Clinical Impression: Dizziness, Ischemic cerebrovascular accident (CVA) Condition: Stable Prescriptions: No Action Linzess 290 mcg capsule 290 mcg PO DAILY nicotine 14 mg/24 hr patch 24 hour 1 patch transdermal DAILY cyanocobalamin (vitamin B-12) 1,000 mcg/mL solution 1,000 mcg IM .weekly nystatin 100,000 unit/gram cream 1 applic topical BID mupirocin 2 % ointment 1 applic topical TID silver sulfadiazine [SSD] 1 % cream 1 applic topical BID PRN (Reason: Itching) Rx Instructions: apply a 1.5 mm thickness hydrocodone-acetaminophen 10-325 mg tablet 1 - 2 tab PO .q4-6h PRN (Reason: Pain) levocetirizine 5 mg tablet 5 mg PO DAILY Narcan 4 mg/actuation spray,non-aerosol 4 mg intranasal Q3M PRN (Reason: Opioid Overdose) Rx Instructions: spray 1 dose into ONE nostril; alternate nostrils w each dose until help arrives nitroglycerin 0.1 mg/hr patch 24 hour 1 patch transdermal DAILY PRN (Reason: chest pain) Rx Instructions: allow nitrate-free interval of approx. 10-12 hrs per 24-hour period furosemide 40 mg tablet 60 mg PO DAILY atorvastatin 40 mg tablet 40 mg PO DAILY Qty: 90 3RF topiramate 200 mg tablet 200 mg PO BID Qty: 180 2RF gabapentin 600 mg tablet 600 mg PO TID Qty: 270 2RF Linzess 290 mcg capsule 290 mcg PO DAILY Qty: 90 2RF lisinopril 40 mg tablet 40 mg PO DAILY Qty: 90 2RF spironolactone 50 mg tablet 50 mg PO DAILY Qty: 90 2RF Rybelsus 7 mg tablet 7 mg PO DAILY Qty: 90 2RF omeprazole magnesium [Acid Roller Presser Operator (omeprazole)] 20 mg capsule,delayed release(DR/EC) 20 mg PO BID Qty: 180 2RF methylphenidate HCl [Ritalin] 20 mg tablet 20 mg PO BID 30 Days Qty: 60 0RF metformin 500 mg tablet 500 mg PO BID Qty: 180 2RF terconazole 0.8 % cream 0.8 applic vaginal DAILY PRN (Reason: Itching) Qty: 20 2RF clotrimazole 1 % cream 1 applic topical BID Qty: 45 1RF fluconazole [Diflucan] 150 mg tablet 150 mg PO DAILY Qty: 3 4RF Trelegy Ellipta 100-62.5-25 mcg blister with device 1 inh inhalation DAILY Qty: 180 3RF hydroxyzine HCl 50 mg tablet 50 - 100 mg PO QID PRN (Reason: Nausea) Qty: 30 2RF albuterol sulfate 2.5 mg /3 mL (0.083 %) solution for nebulization See Rx Instructions .ROUTE .COMPLEX Qty: 180 0RF Dose Instruction: INHALE 3 ML 4 TIMES A DAY BY NEBULIZATION ROUTE NEEDED. Rx Instructions: INHALE 3 ML 4 TIMES A DAY BY NEBULIZATION ROUTE NEEDED. Discharge Orders: Discharge ED (Routine); Ordered 07/02/23 Ordered By: Rafael Barahona Referrals: Halie Rios MD [Primary Care Provider] - Discharge Diet: Usual diet Discharge Activity: Increase activity as tolerated Patient Instructions: Ischemic Stroke (DC) Activity Restrictions/Additional Instructions: Continue with routine medications. Drink plenty water and fluids. Follow-up with primary care for recheck and further recommendations of treatment. Return to ED for new concerns or worsening symptoms. Coding Level of Care Code ED Licensed Midwife for Guero Bruno
[2023-07-02] MEDS: meclizine 25 mg tablet PO (21:04)
[2023-07-02 21:30] LABS: Alanine Aminotransferase 16 U/L (0-33); Alkaline Phosphatase 86 U/L (35-105); Anion Gap 14.7 (5-19); Aspartate Amino Transferase 18 U/L (0-32); Blood Urea Nitrogen 18 mg/dL (8-23); Calcium 9.5 mg/dL (8.5-10.5); Carbon Dioxide 27 mmol/L (22-29); Chloride 105 mmol/L (98-107); Globulin 3.1 g/dL (1.3-4.6); Glucose 102 mg/dL (65-115); Osmolality Calculated 296 mOsm/kg (285-295); Potassium 4.7 mmol/L (3.5-5.1); Sodium 142 mmol/L (136-145); Total Bilirubin 0.3 mg/dL (0.15-1.2); Total Protein 7.1 g/dL (6.6-8.7)
[2023-07-02 21:58] LABS: Mean Corpuscular Volume 91.1 fl (85-98); Red Blood Count 5.38 10^6/uL (3.85-5.65); White Blood Count 8.33 10^3/uL (3.29-11.43)
[2023-07-02 21:59] LABS: Basophils % 0.5 %; Eosinophils % 2.5 %; Lymphocytes # 2.1 10^3/uL (0.8-4.8); Lymphocytes % 25.7 %; Mean Corpuscular HGB Conc 32.7 g/dL (30-55); Mean Corpuscular Hemoglobin 29.7 pg (27-33); Mean Platelet Volume 9.6 fL (7.4-10.4); Monocytes % 9.5 %; Neutrophils # 5.13 10^3/uL (1.8-7.7); Neutrophils % 61.6 %; Platelet Count 215 10^3/cmm (157-399); Red Cell Distribution Width 12.8 % (12.1-15.1)
[2023-07-02 22:00] LABS: Eosinophils # 0.2 10^3/uL (0.0-0.8); Monocytes # 0.8 10^3/uL (0.2-0.9)
[2023-07-02 22:15] LABS: Nucleated Red Blood Cells % 0 %
[2023-07-02 22:52] LABS: Add Urine Microscopic? YES; Bilirubin Urine Neg (Negative); Blood Urine Neg (Negative); Glucose Urine UA Norm (Normal); Ketones Urine Negative (Negative); Leukocyte Esterase Urine 1+ (Negative); Nitrate Urine Positive (Negative); Protein Urine Neg (Negative); Urine Appearance Hazy (CLEAR); Urine Color Colorless (Yellow); Urobilinogen Urine Neg (Negative); pH Urine 6 (5-7)
[2023-07-02 22:53] LABS: Add Urine Culture? Yes; Bacteria Urine 3+ /hpf; Squamous Epithelial Cell Urine 0-4 /hpf (0-5)
== END 2023-07-02 22:58 | disposition home or self-care (01) ==
PROVIDERS: Emergency Provider Nurse Practitioner Family; PCP Family Medicine
DX: R42 Dizziness and giddiness (principal); I63.89 Other cerebral infarction; Z77.22 Contact with and (suspected) exposure to environmental tobacco smoke (acute) (chronic); I11.0 Hypertensive heart disease with heart failure; I50.30 Unspecified diastolic (congestive) heart failure; E11.9 Type 2 diabetes mellitus without complications; Z79.899 Other long term (current) drug therapy
CPT/HCPCS: 36415; 70450; 71045; 73502; 80053; 81001; 85025; 87077; 87086; 87186; 93005; 99285; J8597

== ENCOUNTER → 2023-07-07 14:26 | Outpatient (BNVA) | payer MEDICARE, SELFPAY | PROVIDERS: PCP Family Medicine; Visit Provider Family Medicine | DX: E11.69 Type 2 diabetes mellitus with other specified complication (principal) | CPT/HCPCS: 80061; 83036 ==

== ENCOUNTER → 2023-08-19 14:32 | Outpatient (BNVA) | payer MEDICARE, SELFPAY | PROVIDERS: PCP Family Medicine; Visit Provider Family Medicine | DX: R30.0 Dysuria (principal) | CPT/HCPCS: 81000; 81003 ==

== ENCOUNTER → 2023-10-14 11:02 | Outpatient (BNVA) | payer MEDICARE, SELFPAY | PROVIDERS: PCP Family Medicine; Visit Provider Family Medicine | DX: M25.562 Pain in left knee (principal); M17.12 Unilateral primary osteoarthritis, left knee | CPT/HCPCS: 73562 ==

== ENCOUNTER 2023-10-29 18:35 | Emergency (ER) | payer MEDICARE, SELFPAY ==
[2023-10-29] VITALS (7 sets, daily range): BP systolic 121–155; BP diastolic 64–92; PULSE 71–104; RESP 18–20; TEMP 37; O2SAT 93–96; BMI 41.5
--- NOTE | 2023-10-29 18:56 | XRR_ITS ---
PROCEDURE INFORMATION: Exam: XR Chest Exam date and time: 10/29/2023 7:20 PM Age: 73 years old Clinical indication: Cough TECHNIQUE: Imaging protocol: Radiologic exam of the chest. Views: 1 view. COMPARISON: CR XR chest 1V portable [id number] 07/02/2023 9:03 PM FINDINGS: Lungs: No focal consolidation. Pleural spaces: No evidence of pneumothorax. No evidence of pleural effusion. Heart/Mediastinum: Cardiomediastinal silhouette is within normal limits. Bones/joints: No evidence of acute osseous abnormality. XR/XR chest 1V portable [id number] IMPRESSION: 1. No acute cardiopulmonary abnormality.
--- NOTE | 2023-10-29 19:13 | W.ED.URI ---
HPI - URI/Sore Throat General: Chief Complaint: Upper Respiratory Infection Stated Complaint: n/v Time Seen by Provider: 10/29/23 18:55 Source: patient Mode of arrival: ambulatory Limitations: no limitations History of Present Illness: 73-year-old female states she has been having a progressive cough for the last 5 days she has had increased wheezing along with producing phlegm. She had some mild dyspnea she denies any pain denies any fever denies any worsening improving factors. PFSH ED PFSH: Medical History COPD (chronic obstructive pulmonary disease) HTN (hypertension) Insomnia Type 2 diabetes mellitus Hernia of abdominal cavity Osteoarthritis Diastolic CHF Post-traumatic stress disorder, chronic Attention-deficit hyperactivity disorder, combined type Enrolled in chronic care management Surgical History H/O total hysterectomy Hx of cholecystectomy Hx of tonsillectomy Hx of appendectomy Family History Brother Cancer Lung Mother Diabetes CAD (coronary artery disease) Sister Diabetes CAD (coronary artery disease) Social History Smoking and tobacco/nicotine status: never used tobacco/nicotine Quit status (tobacco/nicotine): considering quitting Second hand smoke exposure: Yes Alcohol intake: never Substance/Drug Use: never Lives independently: Yes Household members: family Marital status: / Current occupational status: retired Do you think of yourself as: Straight/Heterosexual Current gender identity: Female Physical Exam Const: COMMON NORMALS: no acute distress, patient oriented x3 and healthy appearing HENMT: COMMON NORMALS: normocephalic and atraumatic HEAD & SCALP: normocephalic and atraumatic Eye: COMMON NORMALS: conjunctivae normal CONJUNCTIVA: Yes conjunctivae normal Neck/C-Spine: COMMON NORMALS: full ROM and supple Chest: COMMONS NORMALS: normal inspection of the chest Resp: COMMON NORMALS: normal respiratory effort, No retractions and No use of accessory muscles AUSCULTATION: wheezes Cardio: COMMON NORMALS: regular rate, regular rhythm and No murmurs present (Cardio) RATE: regular rate RHYTHM: regular rhythm GI: COMMON NORMALS: Normal to inspection, nondistended, normoactive bowel sounds present, Soft to palpation, non-tender and no masses PALPATION: Yes Soft to palpation Extremity: COMMON NORMALS: normal to inspection and full ROM Neuro: COMMON NORMALS: patient oriented x3, moves all extremities and no focal motor deficits Psych: COMMON NORMALS: mental status grossly normal, Normal thought process present and cooperative THOUGHT PROCESS: Normal thought process present Skin: COMMON NORMALS: no rashes or lesions noted and no wounds GENERAL SKIN EXAM: no rashes or lesions noted Course Vital Signs: Vital signs: Vital Signs Temperature 98.6 F 10/29/23 19:15 Pulse Rate 74 10/29/23 20:30 Respiratory Rate 20 H 10/29/23 20:30 Blood Pressure 134/73 10/29/23 20:30 Pulse Oximetry 93 10/29/23 20:30 Oxygen Delivery Me thod Room Air 10/29/23 19:42 MDM - URI/Sore Throat Medical Decision Making Patient presents with cough and congestion likely bronchitis we will place her on doxycycline did give her Decadron here she is well-appearing here she stable for discharge she is follow-up with PCP and return if worsening she understands agrees to plan. Medical Records I reviewed the patient's medical records. Lab Data I reviewed the patient's lab results. 10/29/23 19:18 10/29/23 19:18 Radiology Impressions Chest X-Ray 10/29/23 18:56 IMPRESSION: 1. No acute cardiopulmonary abnormality. Laboratory Results WBC 13.98 10^3/uL (3.29-11.43) H 10/29/23 19:18 RBC 5.40 10^6/uL (3.85-5.65) 10/29/23 19:18 Hgb 16.30 g/dL (11.27-16.99) 10/29/23 19:18 Hct 50.1 % (36-47) H 10/29/23 19:18 MCV 92.8 fl (85-98) 10/29/23 19:18 MCH 30.2 pg (27-33) 10/29/23 19:18 MCHC 32.5 g/dL (30-55) 10/29/23 19:18 RDW 13.4 % (12.1-15.1) 10/29/23 19:18 Plt Count 252 10^3/cmm (157-399) 10/29/23 19:18 MPV 9.7 fL (7.4-10.4) 10/29/23 19:18 Neut % (Auto) 78.6 % 10/29/23 19:18 Lymph % (Auto) 11.1 % 10/29/23 19:18 [place] % (Auto) 8.7 % 10/29/23 19:18 Eos % (Auto) 0.7 % 10/29/23 19:18 Baso % (Auto) 0.4 % 10/29/23 19:18 Neut # (Auto) 10.99 10^3/uL (1.8-7.7) H 10/29/23 19:18 Lymph # (Auto) 1.6 10^3/uL (0.8-4.8) 10/29/23 19:18 [place] # (Auto) 1.2 10^3/uL (0.2-0.9) H 10/29/23 19:18 Eos # (Auto) 0.1 10^3/uL (0.0-0.8) 10/29/23 19:18 Baso # (Auto) 0.1 10^3/uL (0.0-0.1) 10/29/23 19:18 Nucleated RBC % (auto) 0 % 10/29/23 19:18 Nucleated RBCs # 0.0 /100WBC 10/29/23 19:18 Sodium 143 mmol/L (136-145) 10/29/23 19:18 Potassium 3.5 mmol/L (3.5-5.1) 10/29/23 19:18 Chloride 109 mmol/L (98-107) H 10/29/23 19:18 Carbon Dioxide 24 mmol/L (22-29) 10/29/23 19:18 Anion Gap 13.5 (5-19) 10/29/23 19:18 BUN 11 mg/dL (8-23) 10/29/23 19:18 Creatinine 0.9 mg/dL (0.5-0.9) 10/29/23 19:18 GFR Calculation Not Reportable 10/29/23 19:18 Glucose 157 mg/dL (65-115) H 10/29/23 19:18 Calculated Osmolality 299 mOsm/kg (285-295) H 10/29/23 19:18 Calcium 9.3 mg/dL (8.5-10.5) 10/29/23 19:18 Total Bilirubin 0.4 mg/dL (0.15-1.2) 10/29/23 19:18 AST 15 U/L (0-32) 10/29/23 19:18 ALT 19 U/L (0-33) 10/29/23 19:18 Alkaline Phosphatase 146 U/L (35-105) H 10/29/23 19:18 Total Protein 7.3 g/dL (6.6-8.7) 10/29/23 19:18 Albumin 3.9 g/dL (3.5-5.2) 10/29/23 19:18 Globulin 3.4 g/dL (1.3-4.6) 10/29/23 19:18 Influenza Type A Ag negative (Negative) 10/29/23 19:35 Influenza Type B Ag negative (Negative) 10/29/23 19:35 SARS-CoV-2 Ag (Rapid) negative (Negative) 10/29/23 19:35 All radiology interpretation(s) finalized by discharge Discharge Plan Discharge Patient Disposition: Home Clinical Impression: Bronchitis Condition: Stable Prescriptions: New doxycycline hyclate 100 mg tablet 100 mg PO BID 7 Days Qty: 14 0RF No Action nystatin 100,000 unit/gram cream 1 applic topical BID silver sulfadiazine [SSD] 1 % cream 1 applic topical BID PRN (Reason: Itching) Rx Instructions: apply a 1.5 mm thickness hydrocodone-acetaminophen 10-325 mg tablet 1 - 2 tab PO .q4-6h PRN (Reason: Pain) Narcan 4 mg/actuation spray,non-aerosol 4 mg intranasal Q3M PRN (Reason: Opioid Overdose) Rx Instructions: spray 1 dose into ONE nostril; alternate nostrils w each dose until help arrives albuterol sulfate 2.5 mg /3 mL (0.083 %) solution for nebulization See Rx Instructions .ROUTE .COMPLEX Qty: 180 0RF Dose Instruction: INHALE 3 ML 4 TIMES A DAY BY NEBULIZATION ROUTE NEEDED. Rx Instructions: INHALE 3 ML 4 TIMES A DAY BY NEBULIZATION ROUTE NEEDED. atorvastatin 40 mg tablet 40 mg PO DAILY Qty: 90 3RF cyanocobalamin (vitamin B-12) 1,000 mcg/mL solution 1,000 mcg IM .monthly Qty: 10 1RF clotrimazole 1 % cream 1 applic topical BID Qty: 45 1RF Trelegy Ellipta 100-62.5-25 mcg blister with device 1 inh inhalation DAILY Qty: 180 3RF furosemide 40 mg tablet 60 mg PO DAILY Qty: 90 3RF gabapentin 600 mg tablet 600 mg PO TID Qty: 270 2RF hydroxyzine HCl 50 mg tablet 50 - 100 mg PO QID PRN (Reason: Nausea) Qty: 30 2RF levocetirizine 5 mg tablet 5 mg PO DAILY Qty: 30 3RF Linzess 290 mcg capsule 290 mcg PO DAILY Qty: 90 2RF lisinopril 40 mg tablet 40 mg PO DAILY Qty: 90 2RF metformin 500 mg tablet 500 mg PO BID Qty: 180 2RF methylphenidate HCl [Ritalin] 20 mg tablet 20 mg PO BID 30 Days Qty: 60 0RF mupirocin 2 % ointment 1 applic topical TID Qty: 22 0RF nicotine 14 mg/24 hr patch 24 hour 1 patch transdermal DAILY Qty: 28 3RF nitroglycerin 0.1 mg/hr patch 24 hour 1 patch transdermal DAILY PRN (Reason: chest pain) Qty: 30 0RF Rx Instructions: allow nitrate-free interval of approx. 10-12 hrs per 24-hour period omeprazole magnesium [Acid Residential Leasing Manager (omeprazole)] 20 mg capsule,delayed release(DR/EC) 20 mg PO BID Qty: 180 2RF Rybelsus 7 mg tablet 7 mg PO DAILY Qty: 90 2RF spironolactone 50 mg tablet 50 mg PO DAILY Qty: 90 2RF topiramate 200 mg tablet 200 mg PO BID Qty: 180 2RF terconazole 0.8 % cream 0.8 applic vaginal DAILY PRN (Reason: Itching) Qty: 20 2RF sulfamethoxazole-trimethoprim [Bactrim DS] 800-160 mg tablet 1 tab PO BID Qty: 20 0RF fluconazole 150 mg tablet 150 mg PO DAILY Qty: 3 4RF Discharge Orders: Discharge ED (Routine); Ordered 10/29/23 Ordered By: Alexx Rizo Referrals: Halie Rios MD [Primary Care Provider] - 1-3 days Discharge Diet: Advance as tolerated Discharge Activity: Resume usual activity Patient Instructions: Acute Bronchitis (ED) Coding Level of Care Code ED Cross Tie Cutter for Guero Bruno
[2023-10-29] MEDS: dexamethasone 10 mg/mL INJ IVP (19:31)
--- NOTE | 2023-10-29 19:35 | ECG_ITS ---
[facility] Test Date: 2023-10-29 Pat Name: Yane Lacey Department: Room: Gender: Female Nuclear Supervising Operator: : 1950 Requested By: Alexx Rizo Order Number: [id number] Cisco MD: Sixto Samano M.D. Measurements Intervals [place] Rate: 95 P: 62 NC: 180 QRS: 23 QRSD: 54 T: 70 QT: 319 QTc: 401 Interpretive Statements SINUS RHYTHM LOW QRS VOLTAGE IN PRECORDIAL LEADS [QRS DEFLECTION < 1.0 mV IN CHEST LEADS] ANTEROSEPTAL MYOCARDIAL INFARCTION , OF INDETERMINATE AGE [40+ ms Q WAVE IN V1-V4] Compared to ECG 07/02/2023 21:25:07 No significant changes Electronically Signed On 10-30-2023 17:02:48 CDT by Sixto Samano M.D. [email or web address]
[2023-10-29] MEDS: ipratropium-albuterol 3 mL Neb INHALATION (19:41)
[2023-10-29 19:43] LABS: Basophils # 0.1 10^3/uL (0.0-0.1); Basophils % 0.4 %; Eosinophils # 0.1 10^3/uL (0.0-0.8); Eosinophils % 0.7 %; Hematocrit 50.1 % (36-47); Lymphocytes # 1.6 10^3/uL (0.8-4.8); Lymphocytes % 11.1 %; Mean Corpuscular HGB Conc 32.5 g/dL (30-55); Mean Corpuscular Hemoglobin 30.2 pg (27-33); Mean Corpuscular Volume 92.8 fl (85-98); Mean Platelet Volume 9.7 fL (7.4-10.4); Monocytes # 1.2 10^3/uL (0.2-0.9); Monocytes % 8.7 %; Neutrophils # 10.99 10^3/uL (1.8-7.7); Neutrophils % 78.6 %; Nucleated Red Blood Cells % 0 %; Platelet Count 252 10^3/cmm (157-399); Red Cell Distribution Width 13.4 % (12.1-15.1); White Blood Count 13.98 10^3/uL (3.29-11.43)
[2023-10-29 20:04] LABS: Influenza A by IFA negative (Negative); Influenza B by IFA negative (Negative)
[2023-10-29 20:08] LABS: SARS Covid-2 Antigen negative (Negative)
[2023-10-29 20:09] LABS: Alanine Aminotransferase 19 U/L (0-33); Albumin Level 3.9 g/dL (3.5-5.2); Alkaline Phosphatase 146 U/L (35-105); Anion Gap 13.5 (5-19); Aspartate Amino Transferase 15 U/L (0-32); Blood Urea Nitrogen 11 mg/dL (8-23); Calcium 9.3 mg/dL (8.5-10.5); Carbon Dioxide 24 mmol/L (22-29); Chloride 109 mmol/L (98-107); Creatinine Clr Calc Pharmacy 77.9885; Globulin 3.4 g/dL (1.3-4.6); Glucose 157 mg/dL (65-115); Osmolality Calculated 299 mOsm/kg (285-295); Potassium 3.5 mmol/L (3.5-5.1); Sodium 143 mmol/L (136-145); Total Bilirubin 0.4 mg/dL (0.15-1.2); Total Protein 7.3 g/dL (6.6-8.7)
[2023-10-29] MEDS: doxycycline 100 mg Tablet PO (20:34)
== END 2023-10-29 20:52 | disposition home or self-care (01) ==
PROVIDERS: Emergency Provider Emergency Medicine; PCP Family Medicine
DX: J40 Bronchitis, not specified as acute or chronic (principal); Z79.84 Long term (current) use of oral hypoglycemic drugs; Z11.52 Encounter for screening for COVID-19; Z77.22 Contact with and (suspected) exposure to environmental tobacco smoke (acute) (chronic); J44.9 Chronic obstructive pulmonary disease, unspecified; I11.0 Hypertensive heart disease with heart failure; I50.30 Unspecified diastolic (congestive) heart failure; E11.9 Type 2 diabetes mellitus without complications
CPT/HCPCS: 36415; 71045; 80053; 85025; 87426; 87804; 93005; 94640; 96374; 99285; J1100

== ENCOUNTER → 2023-12-15 13:40 | Outpatient (BNVA) | payer MEDICARE, SELFPAY | PROVIDERS: PCP Family Medicine; Referring Provider Family Medicine; Visit Provider Student in an Organized Health Care Education/Training Program | DX: M17.0 Bilateral primary osteoarthritis of knee; M25.561 Pain in right knee; M25.562 Pain in left knee | CPT/HCPCS: 73560; 73565; 99214 ==

== ENCOUNTER → 2023-12-22 12:56 | Outpatient (BNVA) | payer MEDICARE, SELFPAY | PROVIDERS: PCP Family Medicine; Visit Provider Family Medicine | DX: R53.83 Other fatigue (principal); Z87.891 Personal history of nicotine dependence; R06.00 Dyspnea, unspecified | CPT/HCPCS: 80053; 82306; 82607; 83540; 84443; 85025 ==

== ENCOUNTER 2024-01-13 16:44 | Outpatient (CLI) | payer MEDICARE, SELFPAY ==
--- NOTE | 2024-01-13 16:30 | CT_ITS ---
WS: [id number] LDCT LUNG CANCER SCREENING HISTORY: Z87.891 - Personal history of nicotine dependence TECHNIQUE: Axial imaging performed from the apices to 1 cm below the costophrenic angles. Coronal and sagittal reformats are submitted with axial MIP series. All CT scans at [facility] use at least one of these dose optimization techniques: automated exposure control; mA and/or kV adjustment per patient size (includes targeted exams where dose is matched to clinical indication); or iterativ e reconstruction. DLP: 91.41 mGy.cm DIvol: Mean CTDIvol: 2.50 (mGy) COMPARISON: 03/06/2021 Diagnostic quality: Satisfactory Lungs: Hyperexpanded lungs. There are a few scattered subpleural opacifications which are less than 4 mm. No new or increasing mass or nodule. There are calcified granulomata. New subsegmental atelectas is in the RIGHT middle lobe with bronchiectasis. Small amount of debris in the RIGHT bronchus. Heart: Normal size heart with no pericardial effusion.. Other findings: Benign calcified LEFT hilar lymph nodes. Very small hiatal hernia. Prior cholecystect rush. RIGHT adrenal adenoma. LEFT adrenal gland is not included. Mild scoliosis. CT/CT lung screening [id number] IMPRESSION: LUNG-RADS: 2S-Benign Appearance or Behavior with Significant Findings FOLLOW UP: 12 Month: Continue annual screening with LDCT OTHER FINDINGS (S MODIFIER): New subsegmental atelectasis RIGHT middle lobe wit h bronchiectasis.
== END 2024-01-13 16:45 | disposition home or self-care (01) ==
LOC: RAD 16:47
PROVIDERS: PCP Family Medicine; Visit Provider Family Medicine
DX: Z12.2 Encounter for screening for malignant neoplasm of respiratory organs (principal); Z87.891 Personal history of nicotine dependence; J98.4 Other disorders of lung; J98.11 Atelectasis; J84.10 Pulmonary fibrosis, unspecified; J47.9 Bronchiectasis, uncomplicated; I89.8 Other specified noninfective disorders of lymphatic vessels and lymph nodes; Z90.49 Acquired absence of other specified parts of digestive tract; D35.01 Benign neoplasm of right adrenal gland
CPT/HCPCS: 71271

== ENCOUNTER 2024-02-17 22:49 | Emergency (ER) | payer MEDICARE, SELFPAY ==
[2024-02-17 22:51] VITALS: BP 157/102; PULSE 98; RESP 20; TEMP 36.9; O2SAT 93; BMI 41.8
--- NOTE | 2024-02-17 23:13 | ECG_ITS ---
[facility] Test Date: 2024-02-17 Pat Name: Yane Lacey Department: Room: Gender: Female Client Services Representative: : 1950 Requested By: Valente Urban Order Number: [id number] Cisco MD: Sixto Samano M.D. Measurements Intervals [place] Rate: 107 P: 64 HI: 174 QRS: 54 QRSD: 63 T: 75 QT: 300 QTc: 401 Interpretive Statements SINUS TACHYCARDIA WITH FREQUENT SUPRAVENTRICULAR PREMATURE COMPLEXES LOW QRS VOLTAGE IN PRECORDIAL LEADS [QRS DEFLECTION < 1.0 mV IN CHEST LEADS] SEPTAL MYOCARDIAL INFARCTION , OF INDETERMINATE AGE [40+ ms Q WAVE IN V1/V2] Compared to ECG 10/29/2023 19:35:52 Sinus rhythm no longer present Myocardial infarct finding still present Electronically Signed On 02-18-2024 9:05:42 CDT by Sixto Samano M.D. [id number] f
--- NOTE | 2024-02-17 23:13 | XRR_ITS ---
PROCEDURE INFORMATION: Exam: XR Chest Exam date and time: 02/17/2024 11:27 PM Age: 73 years old Clinical indication: Pain; Chest pressure; Additional info: Chest pain TECHNIQUE: Imaging protocol: Radiologic exam of the chest. Views: 1 view. COMPARISON: CT lung screening [id number] 01/13/2024 4:52 PM FINDINGS: Lungs: The lungs are adequately expanded. No focal consolidations or pulmonary edema. Pleural spaces: No pleural effusions or pneumothorax. Heart/Mediastinum: No cardiomegaly. Bones/joints: No acute fractures. XR/XR chest 1V portable [id number] IMPRESSION: No acute pulmonary disease.
[2024-02-17 23:34] VITALS: BP 113/78; PULSE 80; RESP 15; O2SAT 92
[2024-02-17 23:36] LABS: Basophils # 0.1 10^3/uL (0.0-0.1); Basophils % 0.6 %; Eosinophils # 0.1 10^3/uL (0.0-0.8); Hematocrit 49.3 % (36-47); Lymphocytes # 1.5 10^3/uL (0.8-4.8); Lymphocytes % 19.4 %; Mean Corpuscular HGB Conc 31.8 g/dL (30-55); Mean Corpuscular Hemoglobin 29.9 pg (27-33); Mean Corpuscular Volume 93.9 fl (85-98); Mean Platelet Volume 9.8 fL (7.4-10.4); Monocytes # 0.4 10^3/uL (0.2-0.9); Monocytes % 5.4 %; Neutrophils # 5.78 10^3/uL (1.8-7.7); Neutrophils % 73.2 %; Nucleated Red Blood Cells % 0 %; Platelet Count 284 10^3/cmm (157-399); Red Blood Count 5.25 10^6/uL (3.85-5.65); Red Cell Distribution Width 13.4 % (12.1-15.1)
--- NOTE | 2024-02-17 23:45 | ED_ITS ---
HPI - Chest Pain 2 General: Chief Complaint: Chest Pain Stated Complaint: chest pain Time Seen by Provider: 02/17/24 23:00 History of Present Illness: Patient is a 73-year-old obese female who presents with complaints of a few day history of epigastric and substernal chest pain. She states her pain has been fairly constant for 3 to 4 days. She noticed some worsening of pain after eating this afternoon and began having some vomiting. She denies any fevers or chills. She had a normal bowel movement yesterday. She has had flatus today. Associated symptoms: Reports abdominal pain, nausea and vomiting; Deny diaphoresis, dyspnea or fever(s) Review of Systems 2 Const: Denies: fever(s), chills or diaphoresis Card: Denies: chest pain Resp: Denies: dyspnea GI: Reports: abdominal pain, nausea and vomiting Skin/Breast: Denies: rash Neuro: Denies: headache(s) PFSH ED 2 PFSH: Medical History Psychiatric care COPD (chronic obstructive pulmonary disease) HTN (hypertension) Insomnia Type 2 diabetes mellitus Hernia of abdominal cavity Osteoarthritis Diastolic CHF Post-traumatic stress disorder, chronic Attention-deficit hyperactivity disorder, combined type Enrolled in chronic care management Surgical History H/O total hysterectomy Hx of cholecystectomy Hx of tonsillectomy Hx of appendectomy Family History Brother Cancer Lung Mother Diabetes CAD (coronary artery disease) Sister Diabetes CAD (coronary artery disease) Social History Smoking and tobacco/nicotine status: never used tobacco/nicotine Quit status (tobacco/nicotine): considering quitting Second hand smoke exposure: Yes Alcohol intake: never Substance/Drug Use: never Lives independently: Yes Household members: family Marital status: / Current occupational status: retired Do you think of yourself as: Straight/Heterosexual Current gender identity: Female Physical Exam 2 Const: COMMON NORMALS: no acute distress, average body habitus, alert and well nourished GENERAL APPEARANCE: cooperative ORIENTATION/CONSCIOUSNESS: Yes awake HENMT: COMMON NORMALS: normocephalic and atraumatic HEAD & SCALP: n ormocephalic and atraumatic Eye: COMMON NORMALS: conjunctivae normal CONJUNCTIVA: Yes conjunctivae normal Neck/C-Spine: GENERAL: Yes normal visual inspection Resp: COMMON NORMALS: normal respiratory effort, No retractions and No use of accessory muscles Cardio: COMMON NORMALS: regular rhythm and Peripheral pulses 2+ throughout RHYTHM: regular rhythm PERIPHERAL PULSES: Peripheral pulses 2+ throughout GI: COMMON NORMALS: Soft to palpation PALPATION: Yes Soft to palpation O THER: Soft and nondistended. Some mild epigastric abdominal tenderness. No guarding or rebound. Extremity: COMMON NORMALS: full ROM and no pedal edema Neuro: COMMON NORMALS: no focal motor deficits SENSORIUM/ORIENTATION: Yes alert Skin: COMMON NORMALS: no rashes or lesions noted GENERAL SKIN EXAM: no rashes or lesions noted Course 2 Vital Signs: Vital signs: Vital Signs Temperature 98.4 F 02/17/24 22:51 Pulse Rate 84 02/18/24 00:34 Respiratory Rate 15 02/18/24 01:05 Blood Pressure 131/93 02/18/24 01:05 Pulse Oximetry 94 02/18/24 01:05 Oxygen Delivery Me thod Nasal Cannula 02/18/24 01:05 Oxygen Flow Rate 2 02/17/24 23:34 MDM - Chest Pain Medical Decision Making Patient is a obese 73-year-old female who presents with complaints of upper abdominal pain, chest pain, nausea and vomiting. EKG is sinus rhythm without any ischemic ST elevation or depressions. Chest x-ray is unremarkable. Basic labs were obtained including a CBC, CMP and lipase and troponin with delta troponin. Lab work is unremarkable per my interpretation. CT of the abdomen and pelvis is negative for acute pathology. She does have an unchanged 7 cm ventral wall abdominal hernia without any evidence of obstruction. She does have 40% stenosis of her descending aorta. Patient is educated on this and need for outpatient follow-up with her PCP. At this time I do not see an indication for admission to the hospital or transfer. Patient be discharged and provided return precautions and recommended follow-up with her PCP. Lab Data I reviewed the patient's lab results. 02/17/24 23:28 02/17/24 23:28 Radiology Impressions Chest X-Ray 02/17/24 23:13 IMPRESSION: No acute pulmonary disease. Abdomen/Pelvis CT 02/18/24 00:14 IMPRESSION: 1. No acute findings within the abdomen or pelvis. 2. Unchanged 7 cm ventral wall abdominal hernia containing nondilated loop of transverse colon and a small amount of small bowel. 3. Severe atherosclerosis of the descending aorta causing approximately 40% stenosis at the level just proximal to the bifurcation. Nonemergent vascular consult is recommended. 4. Nonobstructing calculus within the upper pole of the left kidney. 5. Right adrenal nodule measuring 1.8 x 1.0 cm on the right and 1.6 x 1.2 cm on the left, unchanged compared to CT abdomen April 18, 2021 and likely representing adenomas. COMMENTS: Consistent with the [place] [employer]'s Incidental Findings Committee white paper (J Am Amauri Radiol 2018): Any incidental renal lesion less than 1 cm or classified as too small to characterize, or any incidental cystic renal lesion characterized as simple-appearing, is likely benign. No follow-up imaging is recommended for these lesions per consensus recommendations based on imaging criteria. Laboratory Results WBC 7.90 10^3/uL (3.29-11.43) 02/17/24 23:28 RBC 5.25 10^6/uL (3.85-5.65) 02/17/24 23:28 Hgb 15.70 g/dL (11.27-16.99) 02/17/24 23:28 Hct 49.3 % (36-47) H 02/17/24 23:28 MCV 93.9 fl (85-98) 02/17/24 23:28 MCH 29.9 pg (27-33) 02/17/24 23:28 MCHC 31.8 g/dL (30-55) 02/17/24 23:28 RDW 13.4 % (12.1-15.1) 02/17/24 23:28 Plt Count 284 10^3/cmm (157-399) 02/17/24 23:28 MPV 9.8 fL (7.4-10.4) 02/17/24 23:28 Neut % (Auto) 73.2 % 02/17/24 23:28 Lymph % (Auto) 19.4 % 02/17/24 23:28 Swisher % (Auto) 5.4 % 02/17/24 23:28 Eos % (Auto) 1.0 % 02/17/24 23:28 Baso % (Auto) 0.6 % 02/17/24 23:28 Neut # (Auto) 5.78 10^3/uL (1.8-7.7) 02/17/24 23:28 Lymph # (Auto) 1.5 10^3/uL (0.8-4.8) 02/17/24 23:28 Swisher # (Auto) 0.4 10^3/uL (0.2-0.9) 02/17/24 23:28 Eos # (Auto) 0.1 10^3/uL (0.0-0.8) 02/17/24 23:28 Baso # (Auto) 0.1 10^3/uL (0.0-0.1) 02/17/24 23:28 Nucleated RBC % (auto) 0 % 02/17/24 23:28 Nucleated RBCs # 0.0 /100WBC 02/17/24 23:28 Sodium 144 mmol/L (136-145) 02/17/24 23:28 Potassium 4.5 mmol/L (3.5-5.1) 02/17/24 23:28 Chloride 108 mmol/L (98-107) H 02/17/24 23:28 Carbon Dioxide 25 mmol/L (22-29) 02/17/24 23:28 Anion Gap 15.5 (5-19) 02/17/24 23:28 BUN 16 mg/dL (8-23) 02/17/24 23:28 Creatinine 0.8 mg/dL (0.5-0.9) 02/17/24 23:28 GFR Calculation Not Reportable 02/17/24 23:28 Glucose 110 mg/dL (65-115) 02/17/24 23:28 Calculated Osmolality 300 mOsm/kg (285-295) H 02/17/24 23:28 Calcium 9.5 mg/dL (8.5-10.5) 02/17/24 23:28 Total Bilirubin 0.3 mg/dL (0.15-1.2) 02/17/24 23:28 AST 15 U/L (0-32) 02/17/24 23:28 ALT 14 U/L (0-33) 02/17/24 23:28 Alkaline Phosphatase 108 U/L (35-105) H 02/17/24 23:28 Troponin T Baseline 17 ng/L (0-10) H 02/17/24 23:28 Troponin T 120 Minute 16.23 ng/L (0-10) H 02/18/24 01:16 Delta Troponin T -0.77 ABS# (0-10) L 02/18/24 01:16 Total Protein 7.1 g/dL (6.6-8.7) 02/17/24 23:28 Albumin 4.1 g/dL (3.5-5.2) 02/17/24 23:28 Globulin 3.0 g/dL (1.3-4.6) 02/17/24 23:28 Lipase 21 U/L (13-60) 02/17/24 23:28 All radiology interpretation(s) finalized by discharge Discharge Plan Discharge Patient Disposition: Home Clinical Impression: Chest pain Qualifiers: Chest pain type: unspecified Qualified Code(s): R07.9 - Chest pain, unspecified Nausea & vomiting Qualifiers: Vomiting type: unspecified Qualified Code(s): R11.2 - Nausea with vomiting, unspecified Condition: Stable Prescriptions: No Action nystatin 100,000 unit/gram cream 1 applic topical BID silver sulfadiazine [SSD] 1 % cream 1 applic topical BID PRN (Reason: Itching) Rx Instructions: apply a 1.5 mm thickness hydrocodone-acetaminophen 10-325 mg tablet 1 - 2 tab PO .q4-6h PRN (Reason: Pain) Narcan 4 mg/actuation spray,non-aerosol 4 mg intranasal Q3M PRN (Reason: Opioid Overdose) Rx Instructions: spray 1 dose into ONE nostril; alternate nostrils w each dose until help arrives sulfamethoxazole-trimethoprim [Bactrim DS] 800-160 mg tablet 1 tab PO BID Qty: 20 0RF fluconazole 150 mg tablet 150 mg PO DAILY Qty: 3 4RF albuterol sulfate 2.5 mg /3 mL (0.083 %) solution for nebulization See Rx Instructions .ROUTE .COMPLEX Qty: 180 0RF Dose Instruction: INHALE 3 ML 4 TIMES A DAY BY NEBULIZATION ROUTE NEEDED. Rx Instructions: INHALE 3 ML 4 TIMES A DAY BY NEBULIZATION ROUTE NEEDED. atorvastatin 40 mg tablet 40 mg PO DAILY Qty: 90 3RF clotrimazole 1 % cream 1 applic topical BID Qty: 45 1RF cyanocobalamin (vitamin B-12) 1,000 mcg/mL solution 1,000 mcg IM .monthly Qty: 10 1RF Trelegy Ellipta 100-62.5-25 mcg blister with device 1 inh inhalation DAILY Qty: 180 3RF furosemide 40 mg tablet 60 mg PO DAILY Qty: 90 3RF gabapentin 600 mg tablet 600 mg PO TID Qty: 270 2RF hydroxyzine HCl 50 mg tablet 50 - 100 mg PO QID PRN (Reason: Nausea) Qty: 30 2RF levocetirizine 5 mg tablet 5 mg PO DAILY Qty: 30 3RF Linzess 290 mcg capsule 290 mcg PO DAILY Qty: 90 2RF lisinopril 40 mg tablet 40 mg PO DAILY Qty: 90 2RF metformin 500 mg tablet 500 mg PO BID Qty: 180 2RF methylphenidate HCl [Ritalin] 20 mg tablet 20 mg PO BID 30 Days Qty: 60 0RF mupirocin 2 % ointment 1 applic topical TID Qty: 22 0RF nicotine 14 mg/24 hr patch 24 hour 1 patch transdermal DAILY Qty: 28 3RF nitroglycerin 0.1 mg/hr patch 24 hour 1 patch transdermal DAILY PRN (Reason: chest pain) Qty: 30 0RF Rx Instructions: allow nitrate-free interval of approx. 10-12 hrs per 24-hour period omeprazole magnesium [Acid Patient Intake Representative (omeprazole)] 20 mg capsule,delayed release(DR/EC) 20 mg PO BID Qty: 180 2RF Rybelsus 7 mg tablet 7 mg PO DAILY Qty: 90 2RF spironolactone 50 mg tablet 50 mg PO DAILY Qty: 90 2RF terconazole 0.8 % cream 0.8 applic vaginal DAILY PRN (Reason: Itching) Qty: 20 2RF topiramate 200 mg tablet 200 mg PO BID Qty: 180 2RF Discharge Orders: Discharge ED (Routine); Ordered 02/18/24 Ordered By: Valente Urban Referrals: Halie Rios MD [Primary Care Provider] - Discharge Diet: Advance as tolerated Patient Instructions: Opioid Safety, Pain Management, Chest Pain (DC) Activity Restrictions/Additional Instructions: Continue home medications as previously directed. Follow-up with your PCP for recheck next week. Return for any new or worsening symptoms or any other concerns. Coding Level of Care Code ED Youth Specialist for Chg Fwd
[2024-02-17] MEDS: ondansetron 2 mg/ML SDV 2 mL 4 MG IVP (23:50)
[2024-02-17 23:55] LABS: Troponin(5th) Baseline 17 ng/L (0-10)
[2024-02-17 23:56] LABS: Alanine Aminotransferase 14 U/L (0-33); Albumin Level 4.1 g/dL (3.5-5.2); Alkaline Phosphatase 108 U/L (35-105); Aspartate Amino Transferase 15 U/L (0-32); Blood Urea Nitrogen 16 mg/dL (8-23); Calcium 9.5 mg/dL (8.5-10.5); Carbon Dioxide 25 mmol/L (22-29); Chloride 108 mmol/L (98-107); Creatinine Clr Calc Pharmacy 88.3556; Glucose 110 mg/dL (65-115); Lipase 21 U/L (13-60); Osmolality Calculated 300 mOsm/kg (285-295); Sodium 144 mmol/L (136-145); Total Bilirubin 0.3 mg/dL (0.15-1.2); Total Protein 7.1 g/dL (6.6-8.7)
[2024-02-18 00:01] LABS: Anion Gap 15.5 (5-19); Potassium 4.5 mmol/L (3.5-5.1)
[2024-02-18 00:04] VITALS: BP 120/68; PULSE 77; RESP 15; O2SAT 90
--- NOTE | 2024-02-18 00:14 | CTR_ITS ---
PROCEDURE INFORMATION: Exam: CT Abdomen And Pelvis With Contrast Exam date and time: 02/18/2024 12:23 AM Age: 73 years old Clinical indication: Abdominal pain; Prior surgery; Surgery date: 6+ months; Surgery type: Hysterectomy, colon, choley; Additional info: Abdominal pain, n/v TECHNIQUE: Imaging protocol: Computed tomography of the abdomen and pelvis with contrast. Radiation optimization: All CT scans at this facility use at least one of these dose optimization techniques: automated exposure control; mA and/or kV adjustment per patient size (includes targeted exams where dose is matched to clinical indication); or iterative reconstruction. Contrast material: OMNI 350; Contrast volume: 100 ml; Contrast route: INTRAVENOUS (IV); COMPARISON: CT abdomen pelvis w con* [id number] 04/18/2021 5:50 PM RADIATION DOSE METRICS: Total DLP (mGy-cm): 853.83 FINDINGS: Lungs: Atelectasis of the medial left lung base. Liver: Normal. No mass. Gallbladder and biliary ducts: Status post cholecystectomy. Pancreas: Normal. No ductal dilation. Spleen: Normal. No splenomegaly. Adrenal glands: Right adrenal nodule measuring 1.8 x 1.0 cm on the right and 1.6 x 1.2 cm on the left, unchanged compared to CT abdomen April 18, 2021 and likely representing adenomas. Kidneys and ureters: 0.5 cm nonobstructing calculus within the upper pole of the left kidney. Small bilateral simple renal cysts, no follow-up needed. Stomach and bowel: Anastomotic sutures within a loop of bowel in the lower pelvis without adjacent wall thickening. Appendix: Status post appendectomy. Intraperitoneal space: Unremarkable. No free air. No significant fluid collection. Vasculature: Severe atherosclerosis of the descending aorta causing approximately 40% stenosis at the level just proximal to the bifurcation. Lymph nodes: Unremarkable. No enlarged lymph nodes. Urinary bladder: Unremarkable as visualized. Reproductive: Status post hysterectomy. Bones/joints: Clips within the left lower pelvis. Soft tissues: Shivam along the anterior abdominal wall. There is a 7 cm ventral wall abdominal hernia containing nondilated loop of transverse colon and a small amount of small bowel. CT/CT abdomen pelvis w con* [id number] IMPRESSION: 1. No acute findings within the abdomen or pelvis. 2. Unchanged 7 cm ventral wall abdominal hernia containing nondilated loop of transverse colon and a small amount of small bowel. 3. Severe atherosclerosis of the descending aorta causing approximately 40% stenosis at the level just proximal to the bifurcation. Nonemergent vascular consult is recommended. 4. Nonobstructing calculus within the upper pole of the left kidney. 5. Right adrenal nodule measuring 1.8 x 1.0 cm on the right and 1.6 x 1.2 cm on the left, unchanged compared to CT abdomen April 18, 2021 and likely representing adenomas. COMMENTS: Consistent with the [employer]'s Incidental Findings Committee white paper (J Am Amauri Radiol 2018): Any incidental renal lesion less than 1 cm or classified as too small to characterize, or any incidental cystic renal lesion characterized as simple-appearing, is likely benign. No follow-up imaging is recommended for these lesions per consensus recommendations based on imaging criteria.
[2024-02-18 00:34] VITALS: BP 134/100; PULSE 84; RESP 13; O2SAT 92
[2024-02-18] MEDS: iohexol 350 mg/mL 500 mL Btl (per mL) IV (00:38)
[2024-02-18 01:05] VITALS: BP 131/93; RESP 15; O2SAT 94
--- NOTE | 2024-02-18 01:20 | ECG_ITS ---
[facility] Test Date: 2024-02-18 Pat Name: Yane Lacey Department: Room: Gender: Female Motorcyles Final Inspector: : 1950 Requested By: Valente Urban Order Number: [id number] Peck MD: Sixto Samano M.D. Measurements Intervals [place] Rate: 94 P: 42 ID: [id number] QRS: 29 QRSD: 80 T: 65 QT: 339 QTc: 426 Interpretive Statements SINUS RHYTHM WITH FREQUENT SUPRAVENTRICULAR PREMATURE COMPLEXES LOW QRS VOLTAGE IN PRECORDIAL LEADS [QRS DEFLECTION < 1.0 mV IN CHEST LEADS] ABNORMAL RHYTHM ECG Compared to ECG 02/17/2024 22:58:43 Sinus tachycardia no longer present Myocardial infarct finding no longer present Electronically Signed On 02-18-2024 9:06:59 CDT by Sixto Samano M.D. [id number]
[2024-02-18 01:35] LABS: Troponin 5 2HR 16.23 ng/L (0-10)
[2024-02-18 01:41] LABS: Troponin 5 2HR Delta -0.77 ABS# (0-10)
[2024-02-18 02:00] VITALS: BP 154/122; PULSE 90; RESP 16; O2SAT 93
[2024-02-18 02:08] VITALS: BP 154/122; PULSE 90; RESP 16; O2SAT 93
== END 2024-02-18 02:12 | disposition home or self-care (01) ==
PROVIDERS: Emergency Provider Student in an Organized Health Care Education/Training Program; PCP Family Medicine
DX: R07.9 Chest pain, unspecified (principal); R11.2 Nausea with vomiting, unspecified; Z79.84 Long term (current) use of oral hypoglycemic drugs; J44.9 Chronic obstructive pulmonary disease, unspecified; I11.0 Hypertensive heart disease with heart failure; I50.30 Unspecified diastolic (congestive) heart failure; E11.9 Type 2 diabetes mellitus without complications
CPT/HCPCS: 71045; 74177; 80053; 83690; 84484; 85025; 93005; 96374; 99285; J2405; Q9967

== ENCOUNTER → 2024-10-27 14:00 | Outpatient (BNVA) | payer MEDICARE, SELFPAY | PROVIDERS: PCP Family Medicine; Referring Provider Internal Medicine; Visit Provider Student in an Organized Health Care Education/Training Program | DX: K46.9 Unspecified abdominal hernia without obstruction or gangrene (principal); Z90.49 Acquired absence of other specified parts of digestive tract; Z87.19 Personal history of other diseases of the digestive system; J44.9 Chronic obstructive pulmonary disease, unspecified; E66.9 Obesity, unspecified; Z68.41 Body mass index [BMI] 40.0-44.9, adult; I11.0 Hypertensive heart disease with heart failure | CPT/HCPCS: 99204 ==

== ENCOUNTER 2024-12-23 12:54 | Outpatient (CLI) | payer OTHER, SELFPAY ==
--- NOTE | 2024-12-23 13:07 | CTR_ITS ---
PROCEDURE INFORMATION: Exam: CT Abdomen And Pelvis With Contrast Exam date and time: 12/23/2024 2:06 PM Age: 74 years old Clinical indication: Condition or disease; Other: Ventral hernia w/o obstruction TECHNIQUE: Imaging protocol: Computed tomography of the abdomen and pelvis with contrast. Radiation optimization: All CT scans at this facility use at least one of these dose optimization techniques: automated exposure control; mA and/or kV adjustment per patient size (includes targeted exams where dose is matched to clinical indication); or iterative reconstruction. Contrast material: OMNI 350; Contrast volume: 100 ml; Contrast route: INTRAVENOUS (IV); COMPARISON: CT abdomen pelvis w con* [id number] 02/18/2024 12:23 AM RADIATION DOSE METRICS: Total DLP (mGy-cm): 828.53 FINDINGS: Tubes, catheters and devices: A right sacral neurostimulator is noted. Lungs: Lung bases are clear. No pleural effusion. Liver: Normal. No mass. Gallbladder and biliary ducts: The gallbladder has been resected. Pancreas: Normal. No ductal dilation. Spleen: Normal. No splenomegaly. Adrenal glands: 1.7 cm right adrenal adenoma noted. Kidneys and ureters: 2 cysts are noted in the right kidney with the largest measuring 2.5 cm in diameter. Stomach and bowel: There is a large anterior abdominal wall hernia within the midline above the umbilicus that contains colon and small bowel. Appendix: No evidence of appendicitis. Intraperitoneal space: Unremarkable. No free air. No significant fluid collection. Vasculature: Unremarkable. No abdominal aortic aneurysm. Lymph nodes: Unremarkable. No enlarged lymph nodes. Urinary bladder: Unremarkable as visualized. Reproductive: Unremarkable as visualized. Bones/joints: Unremarkable. No acute fracture. Soft tissues: Unremarkable. CT/CT abdomen pelvis w con* [id number] IMPRESSION: 1. No acute findings. 2. Large anterior abdominal wall hernia which has not changed over the past year 3. Stable 1.7 cm right adrenal adenoma 4. A benign renal cyst or cysts have been detected. No further follow-up imaging is required. COMMENTS: Consistent with the [place] [employer]'s Incidental Findings Committee white paper (J Am Amauri Radiol 2018): Any incidental renal lesion less than 1 cm or classified as too small to characterize, or any incidental cystic renal lesion characterized as simple-appearing, is likely benign. No follow-up imaging is recommended for these lesions per consensus recommendations based on imaging criteria.
--- NOTE | 2024-12-23 13:10 | XR_ITS ---
WS: [id number] XR hip BI 2V wo/w pel [id number] REASON FOR EXAM: L HIP PAIN FINDINGS: Multiple surgical clips and small coils presumably representing mesh. Battery pack overlying the right iliac crest with lead to the right pelvis. RIGHT HIP: No fracture or focal bone lesion. Moderate narrowing of the posterior inferior joint space. Mild narrowing of the anterior superior joint space. Moderate subchondral sclerosis and osteophytosis of the acetabulum. LEFT HIP: No fracture or focal bone lesion. Moderate narrowing of the posterior inferior joint space Mild narrowing of the anterior superior joint space. Moderate subchondral sclerosis and osteophytosis of the acetabulum. XR/XR hip BI 2V wo/w pel [id number] IMPRESSION: Mild/moderate osteoarthritis of the right and left hip.
[2024-12-23] MEDS: iohexol 350 mg/mL 500 mL Btl (per mL) IV (13:39)
[2024-12-23] MEDS: iohexol 350 mg/mL 500 mL Btl (per mL) PO (13:40)
[2024-12-23 14:04] LABS: Blood Urea Nitrogen 15 mg/dL (8-23)
== END 2024-12-23 12:55 | disposition home or self-care (01) ==
LOC: RAD 12:59
PROVIDERS: PCP Internal Medicine; Visit Provider Surgery Surgical Critical Care
DX: K43.9 Ventral hernia without obstruction or gangrene (principal)
CPT/HCPCS: 73521; 74177; 82565; 84520

== ENCOUNTER → 2025-04-05 13:04 | Outpatient (BNVA) | payer OTHER, SELFPAY | PROVIDERS: PCP Internal Medicine; Visit Provider Student in an Organized Health Care Education/Training Program | DX: M25.562 Pain in left knee (principal); M17.0 Bilateral primary osteoarthritis of knee; E11.9 Type 2 diabetes mellitus without complications; F17.200 Nicotine dependence, unspecified, uncomplicated; M25.561 Pain in right knee; Z79.84 Long term (current) use of oral hypoglycemic drugs | CPT/HCPCS: 73560; 73565; 99214 ==

== ENCOUNTER → 2025-04-06 11:09 | Outpatient (BNVA) | payer OTHER, SELFPAY | PROVIDERS: PCP Internal Medicine; Visit Provider Nurse Practitioner Family | DX: L57.8 Other skin changes due to chronic exposure to nonionizing radiation (principal); D22.39 Melanocytic nevi of other parts of face; L98.8 Other specified disorders of the skin and subcutaneous tissue; L91.8 Other hypertrophic disorders of the skin; L82.1 Other seborrheic keratosis | CPT/HCPCS: 11102; 17000; 99213 ==